=== PATIENT | male | born 1950 | race Caucasian/White ===

== ENCOUNTER → 2016-08-27 | Outpatient (CLI) | payer BC, OTHER ==
[~2016-08-27] MED LIST: ACET325T96 PO; ADVIN25/60 INH; ALFU10TA30 PO; ALUMCHW2 PEG; ALUMCHW6 PO; ASPI-435 PO; ATOR10TA88 PO; BUPR-79 PO; CYAN500T PO; IBUP-1050 PO; LAMO100T16 PO; LEVO100T7 PO; MISC1CAP27 PO; MTR400 PO; MULT-845 PO; NAPR1TAB9 PO; OMEG10007 PO; OMEP20TA14 PO; OXYC-57 PO; POLY1GRA PO; POTA1080 PO; TRAZ50TA35 PO; WARF2TAB PO
[2016-08-27 10:34] LABS: PROSTATE SPECIFIC ANTIGEN 1.75 ng/ml (0.000-4.000); THYROID STIMULATING HORMONE 0.785 uIu/ml (0.300-4.500)
== END | disposition home or self-care (01) ==
LOC: C.LAB 09:17
PROVIDERS: ATTEND Urology
DX: N40.1 Benign prostatic hyperplasia with lower urinary tract symptoms (principal); N52.9 Male erectile dysfunction, unspecified; N20.0 Calculus of kidney; E78.00 Pure hypercholesterolemia, unspecified; E03.9 Hypothyroidism, unspecified

== ENCOUNTER 2016-09-01 05:56 | Inpatient (IN) | payer BC, OTHER ==
[2016-08-27 08:24] VITALS: BMI 21.0
--- NOTE | 2016-08-27 09:02 | PAT Medication Instructions ---
Service Date Aug 27, 2016. Current Home Medication List Acetaminophen Tab (Tylenol), 650 MG PO PRN Alfuzosin Hcl (Uroxatral), 10 MG PO QPM Aluminum Hydroxide-Mag Carb (Gaviscon Extra Strength), 1 TAB PO DAILY PRN for pn Aspirin (Aspirin 81), 81 MG PO QAM Atorvastatin (Lipitor), 10 MG PO HS Bupropion (Wellbutrin Sr), 150 MG PO BID Fish Oil ([place]-3), 1 CAP PO BID Ibuprofen (Advil), 200-400 MG PO PRN Lamotrigine (Lamictal), 50 MG PO QPM Levothyroxine Sodium (Levothyroxine Sodium), 100 MCG PO QAM Multiple Vitamins W/ Minerals (Centrum Silver Adult 50+), 1 TAB PO QAM Naproxen (Aleve), 220 MG PO 5XWEEK Omeprazole Magnesium (Prilosec Otc), 20 MG PO QPM Polyethylene Glycol 3350 (Bulk (Polyethylene Glycol 3350), 0.5 TSP PO QAM Potassium Citrate (Urocit-K), 10 MEQ PO BID Trazodone Hcl (Trazodone), 50-100 MG PO HS Medication Instructions For Your Scheduled Surgery - Hold the following medications as of today 08/27/16: Fish Oil ([place]-3), 1 CAP PO BID - Hold the following medications 7-10 days prior to surgery per surgeon's instructions: Ibuprofen (Advil), 200-400 MG PO PRN Naproxen (Aleve), 220 MG PO 5XWEEK - Hold the following medications the morning of surgery: Potassium Citrate (Urocit-K), 10 MEQ PO BID Multiple Vitamins W/ Minerals (Centrum Silver Adult 50+), 1 TAB PO QAM Aluminum Hydroxide-Mag Carb (Gaviscon Extra Strength), 1 TAB PO DAILY PRN Polyethylene Glycol 3350 (Bulk (Polyethylene Glycol 3350), 0.5 TSP PO QAM - Take the following medications the morning of surgery with a sip of water OTHERWISE NOTHING TO EAT OR DRINK AFTER MIDNIGHT: Bupropion (Wellbutrin Sr), 150 MG PO BID Aspirin (Aspirin 81), 81 MG PO QAM Acetaminophen Tab (Tylenol), 650 MG PO PRN (may take if needed up to 4 hours prior to surgery) Levothyroxine Sodium (Levothyroxine Sodium), 100 MCG PO QAM - Take the following medications as scheduled the night before surgery: Trazodone Hcl (Trazodone), 50-100 MG PO HS Atorvastatin (Lipitor), 10 MG PO HS Bupropion (Wellbutrin Sr), 150 MG PO BID Lamotrigine (Lamictal), 50 MG PO QPM Acetaminophen Tab (Tylenol), 650 MG PO PRN Potassium Citrate (Urocit-K), 10 MEQ PO BID Alfuzosin Hcl (Uroxatral), 10 MG PO QPM Omeprazole Magnesium (Prilosec Otc), 20 MG PO QPM Aluminum Hydroxide-Mag Carb (Gaviscon Extra Strength), 1 TAB PO DAILY PRN If you have any questions please call us at [phone] or [phone] or [phone]
[2016-08-27 09:46] LABS: BASO % 0.5 %; BASO ABS # 0.03 K/uL (0-0.2); COMPLETE YES; HEMATOCRIT 41.8 % (42-52); IG% 0.2 %; LYMPH % 21.4 %; MEAN CELL VOLUME 91.3 fL (80-100); MEAN CORPUSCULAR HEMOGLOBIN 31.4 pg (25-34); MEAN CORPUSCULAR HGB CONC 34.4 g/dl (32-36); MEAN PLATELET VOLUME 8.7 fL (7.4-10.4); MONO % 6.4 %; NEUT % 68.5 %; PLATELET COUNT 217 K/uL (130-400); RED BLOOD COUNT 4.58 M/uL (4.7-6.1); WHITE BLOOD COUNT 6.08 K/uL (4.8-10.8)
[2016-08-27 09:57] LABS: URINE APPEARANCE CLEAR (CLEAR); URINE BILIRUBIN NEG (NEG); URINE COLOR YELLOW; URINE NITRITE NEG (NEG); URINE PH 7.5 (4.5-7.5); URINE SPECIFIC GRAVITY 1.017 (1.000-1.030); UROBILINOGEN NEG (NEG)
[2016-08-27 10:00] LABS: PARTIAL THROMBOPLASTIN RATIO 1.1; PROTHROMBIN TIME (PATIENT) 10.9 SECONDS (9.0-12.0)
[2016-08-27 10:20] LABS: MANUAL MICROSCOPIC REQUIRED? NO; REVIEW REQ? NO
[2016-08-27 10:24] LABS: BUN/CREATININE RATIO 16.8 (10-20); CALCIUM 8.8 mg/dl (8.5-10.1); CREATININE 1.2 mg/dl (0.60-1.40); POTASSIUM 4.2 mmol/L (3.5-5.1)
[2016-08-27 10:26] LABS: ALB/GLOB RATIO 1.1 (0.9-2)
--- NOTE | 2016-08-31 16:52 | HISTORY & PHYSICAL EXAMINATION ---
DATE OF ADMISSION: 09/01/2016 PREOPERATIVE HISTORY AND PHYSICAL CHIEF COMPLAINT: Right hip pain. HISTORY OF PRESENT ILLNESS: This 66-year-old male presents to the clinic for his preoperative history and physical. The patient complains of a 2- to 3-year history of persistent right hip pain. The patient has failed conservative treatment with hip joint injections, chiropractic adjustments, use of nonsteroidal anti-inflammatories and physical therapy. The patient states that the pain is affecting his gait. The patient states that the pain seems worse in the morning and improves slightly throughout the day with movement. The patient denies numbness or tingling in his right lower extremity. He denies any loss of bowel or bladder function. He also denies chest pain, shortness of breath, fever, chills, sweats, nausea, vomiting or diarrhea. PAST SURGICAL HISTORY: Tonsillectomy, adenoidectomy, ventral hernia repair, colonoscopy, sebaceous cyst excision and bilateral eye laser surgery. PAST MEDICAL HISTORY: Anxiety, depression, hyperlipidemia, hypothyroidism, gastroesophageal reflux disease, hyperkalemia, history of renal calculi and benign prostatic hypertrophy. FAMILY HISTORY: Parents - depression, dementia, hyperlipidemia, squamous cell carcinoma and coronary artery disease. ALLERGIES: THE PATIENT HAS A MEDICATION ALLERGY TO CIPRO. CURRENT MEDICATIONS TAKEN: Tylenol 650 mg tablet every 6 hours as needed for pain, alfuzosin 10 mg oral tablet daily, aluminium hydroxide/magnesium trisilicate 160 mg/105 mg as needed, aspirin 81 mg oral tablet daily, atorvastatin 10 mg oral tablet daily, bupropion HCL SR 150 mg twice daily, ibuprofen 200 mg 3 tabs every 6 hours as needed for pain, lamotrigine 50 mg tablet daily, levothyroxine 100 mcg daily, multivitamin unknown dosage daily, naproxen 220 mg 1 tab every 8 hours as needed, omega-3 polyunsaturated fatty acid 1200 mg twice daily, omeprazole 20 mg oral capsule 1 cap daily, polyethylene glycol 3350 reconstituted in water 17 grams p.o. daily, potassium citrate 180 mg per 10 mEq 2 times daily and trazodone 50-100 mg daily as needed. SOCIAL HISTORY: The patient denies a history of smoking or illicit drug use and states that he rarely consumes alcohol. PHYSICAL EXAMINATION: SKIN: The patient's skin is normal in appearance. No open skin lesions or discharge. EYES: Pupils are equal and reactive to light and accommodation. Extraocular movements are intact. EARS: Canals are clear of cerumen. Tympanic membranes are intact bilaterally with no bulging or effusion. NOSE: Turbinates pink and boggy in appearance. No appreciable rhinorrhea. THROAT: Posterior oropharynx is clear with absence of edema, erythema or exudate. CARDIOVASCULAR: The patient has a regular rate and rhythm with a very faint grade 1/6 holosystolic murmur heard best over the apex. LUNGS: Auscultation of the lung lugo reveals clear breath sounds throughout with no wheezing, rales or rhonchi. EXTREMITIES: Right hip - the patient has mild crepitation with active and passive range of motion of the right hip. He has a positive Zoran test and positive internal rotation test. He has no pain with external rotation and no pain with adduction, actively or passively against resistance and he has a negative straight leg raise test in the right lower extremity. There is no edema, erythema, ecchymosis, warmth or palpable bony deformity. The patient does have tenderness to palpation over the anterior and lateral aspect of the right hip. Otherwise, he is neurovascularly intact in right lower extremity. His peripheral pulses are palpable. His capillary refill is brisk. All other extremities are normal in appearance with appropriate range of motion and strength. NEUROLOGIC: Cranial nerves II-XII are intact. No motor or sensory deficit. PSYCHOLOGICAL AND GENERAL: The patient appears slightly anxious at today's visit. Otherwise, he is alert and oriented x3 with proper grooming and hygiene. DIAGNOSIS: Right hip degenerative joint disease. PROCEDURE: Right total hip arthroplasty. RADIOGRAPHIC IMAGING: Images of the right hip/pelvis show end-stage disease with marked osteoarthritis and joint space narrowing in the right hip joint with femoral impingement and a large Cam lesion. PLAN: The patient is scheduled to undergo the procedure with Dr. Austin Ross at [facility] on 09/01/2016. Risks and complications of the surgery such as infection, bleeding, pain, scarring, nerve and blood vessel damage, weakness, wound problems, stiffness, incomplete relief of symptoms, heart attack, stroke, , hardware failure, loosening membreno, fracture, dislocation, leg length inequality, blood clots and embolism were explained to the patient and he understands and agrees. Written consent to perform the procedure was obtained. We also obtained preoperative medical clearance from the patient's PCP, Dr. Adams along with cardiac clearance that he received from Dr. Mcfarland. We will also obtain a preoperative CBC with diff, complete metabolic panel, PT, INR, PTT, blood type and screen, urinalysis, urine culture and sensitivity and an EKG. The patient is scheduled for preanesthesia clearance and testing at the hospital this Tuesday and will obtain the necessary testing at that time. He is scheduled to see his PCP on the 25 of August. The patient was given an order for a walker that he will obtain at [facility] and bring with him on the day of surgery. He states he is unsure whether he will do home health for 2 weeks or will come to our clinic for postoperative physical therapy after discharge from the hospital. The patient states that he will discuss it with case management with the hospital before discharge. The patient was given paperwork for a handicap placard. He was also given instruction prophylaxis of infection with dental procedures that he will have to take medication prior to procedures after having the arthroplasty performed. The patient was advised that he will be provided with prescriptions for Coumadin to take for 6 weeks for DVT prophylaxis. He will have to do biweekly INR checks while he is on Coumadin. He will also use MARCOS stockings for DVT prophylaxis. The patient was advised that he will be provided with a prescription for pain medication upon discharge from the hospital along with prescriptions for the INR checks and for physical therapy/occupational therapy that he will do 2-3 times weekly for 6-8 weeks postoperatively. The patient verbalized understanding of all information provided at today's visit and thanked us for the care he has received and states that he has questions or concerns prior to the procedure, he will contact the clinic accordingly. JOSE A
[2016-09-01] VITALS (9 sets, daily range): BP systolic 101–129; BP diastolic 43–73; PULSE 53–74; TEMP 36.3–37.2; O2SAT 93–98; Ht 172.7 cm; Wt 63.9 kg
[~2016-09-01] VITALS: Ht 172.7 cm; Wt 63.9 kg
[~2016-09-01 05:56] MED LIST changes: -ADVIN25/60 INH; -ALUMCHW2 PEG; -CYAN500T PO; -MISC1CAP27 PO; -MTR400 PO; -OXYC-57 PO; -WARF2TAB PO
[2016-09-01] MEDS ORDERED: LACTATED RINGER'S 1000ML 1,000 ML IV SCH (06:00)
[2016-09-01] MEDS ORDERED: TRANEXAMIC ACID INJ 1,000 MG in SODIUM CHLORIDE 0.9% 100ML 100 ML IV SCH (06:00)
[2016-09-01] MEDS ORDERED: LACTATED RINGER'S 1000ML IV SCH (06:00)
[2016-09-01] MEDS ORDERED: CEFAZOLIN 2000 MG/60 ML D5W 60 ML IV SCH (06:00)
--- NOTE | 2016-09-01 06:21 | History & Physical Bridge Note ---
H&P Re-Evaluation Bridge Note: I have examined the patient, reviewed the History & Physical and in the interval since the performance of the History & Physical I have noted the following changes of clinical significance: No changes noted
[2016-09-01] MEDS ORDERED: BUPIVACAINE 0.5 % 5 MG/1 ML PF 10ML VIAL ONE (06:28)
[2016-09-01] MEDS ORDERED: PROPOFOL IV EMULSION 10 MG/ML 20 ML VIAL IV ONE (07:21)
[2016-09-01] MEDS ORDERED: LIDOCAINE HCL 2% 2 ML VIAL (20MG/ML) ONE (07:21)
[2016-09-01] MEDS ORDERED: FENTANYL CITRATE INJ 50 MCG/1 ML 2 ML VIAL ONE (07:22)
[2016-09-01] MEDS ORDERED: MIDAZOLAM HCL 1 MG/ML 2ML VIAL ONE ×2 (07:22→08:52)
[2016-09-01] MEDS ORDERED: POVIDONE-IODINE OP SOLN 30 ML BTL ONE (08:29)
[2016-09-01] MEDS ORDERED: LACTATED RINGER'S 1000ML 1,000 ML IV PRN (08:41)
[2016-09-01] MEDS ORDERED: ONDANSETRON INJ 2 MG/ML 2 ML VIAL IV PRN ×2 (08:45→10:15)
[2016-09-01] MEDS ORDERED: FENTANYL CITRATE INJ 50 MCG/1 ML 2 ML VIAL IV PRN (08:45)
[2016-09-01] MEDS ORDERED: EpHEDrine SULFATE 50MG/5ML SYR ONE (09:06)
[2016-09-01] MEDS ORDERED: ONDANSETRON INJ 2 MG/ML 2 ML VIAL ONE (09:06)
[2016-09-01] MEDS: ROPIVACAINE 5MG/ML 30 ML 150 MG, BUPIVACAINE/EPINEPHR 0.5% MPF 30 ML, KETOROLAC TROMETH... INFIL SCH ×14 (09:30→09:32)
--- NOTE | 2016-09-01 09:53 | [facility] Post Operative Brief Note ---
Immediate Operative Summary Operative Date Sep 01, 2016. Pre-Operative Diagnosis Right Hip Degenerative Joint Disease Post-Operative Diagnosis Right Hip Degenerative Joint Disease Procedure(s) Performed Right Total Hip Arthroplasty--Uncemented Surgeon Dr. Ross Correctional Program Officer Surgeon(s) Denis Garcia PA-C Estimated Blood Loss 100 ml Findings severe djd/coxa magna Fluids (cc crystalloids) 1200cc Specimens A: Right Femoral Head Drains none Anesthesia spinal Complication(s) None Disposition Recovery Room / PACU
[2016-09-01] MEDS ORDERED: MoRPHine SULFATE 2 MG/ML CARP IV PRN (10:15)
[2016-09-01] MEDS ORDERED: DiphenhydrAMINE HCL 50 MG/ML VIAL IV PRN (10:15)
[2016-09-01] MEDS ORDERED: ALUMINUM/MAGNESIUM/SIMETH (MAALOX MAX) 30 ML UDC PO PRN (10:15)
[2016-09-01] MEDS ORDERED: TAMSULOSIN HCL 0.4 MG CAP PO PRN (10:15)
[2016-09-01] MEDS ORDERED: MAGNESIUM HYDROXIDE SUSP 30 ML UDC PO PRN (10:15)
[2016-09-01] MEDS ORDERED: BISACODYL 10 MG SUPP PR PRN (10:15)
[2016-09-01] MEDS ORDERED: ACETAMINOPHEN 325 MG TAB PO PRN (10:15)
[2016-09-01] MEDS ORDERED: METOCLOPRAMIDE HCL INJ 5 MG/ML 2 ML VIAL IV PRN (10:15)
--- NOTE | 2016-09-01 10:17 | OPERATIVE REPORT ---
DATE OF OPERATION: 09/01/2016 SURGEON: Dr. Ross. NUCLEAR MEDICINE PHYSICIAN: Radha. SECOND NUCLEAR MEDICINE PHYSICIAN: Conner Azul. PREOPERATIVE DIAGNOSIS: Osteoarthritis right hip with coxa magna. POSTOPERATIVE DIAGNOSIS: Same. OPERATION PERFORMED: Noncemented right total hip replacement. PERIOPERATIVE SITUATION: Medically cleared male with intractable hip pain, has failed conservative management. He has had an extensive cardiac workup cardiac workup and is cleared for surgery. Options were discussed and he wanted to proceed with surgery. SUMMARY OF IMPLANTS: Size 56 acetabular shell sector cup hole eliminator, 6.5 x 30 screw liner, 36 x 56 neutral liner, size 4 standard offset stem, and 36 minus 2 head. ESTIMATED BLOOD LOSS: 100 mL. CRYSTALLOID: 1200 mL. PROCEDURE: The patient appropriately identified, site verified, consent verified, 2 grams of Ancef confirmed as being given. The right lower extremity was prepped and draped in usual routine fashion with the patient in left lateral decubitus position. A posterior approach to the hip was made. Sharp dissection carried to skin and blunt dissection down to the fascia. This was then incised under direct vision. Retractors were then placed. Short external rotators were identified and released. The capsule was identified and T'd. The hip was then dislocated, the femoral neck and head resected. The remaining labrum was then resected. Serial reaming carried up to a 56 and a 56 cup impacted into appropriate anteversion and inclination. It had excellent fixation alone but an additional screw 6.5 x 30 screw was utilized and excellent purchase was obtained. Trial liner was seated. The leg was then flexed, internally rotated, the proximal femur prepared with box worker, lateralizing rasp, serial broaching up to a size 4 and trial reductions carried out. With a +1.5, it appeared the legs were slightly long, so we wanted to go back a little bit was also a little bit tight, so we went back to a minus 2 and that made the leg lengths slightly short but much less tightness and significant stability was present, so it was elected to go with that. The hip was then dislocated, the remaining trial elements were removed and irrigated with Betadine, irrigated with Pulsavac, the hole eliminator seated, the permanent liner seated, the permanent head and neck seated and then the hip reduced. It had excellent stability in all planes. It was irrigated one final time and then closed with heavy Vicryl for the capsule, heavy Vicryl for the fascial albino and the gluteus tod fascia, 2-0 Vicryl for the subcutaneous tissue and stainless steel clips for skin. Appropriate dressing applied. The patient was then transferred to recovery room in satisfactory condition having tolerated the procedure well. Deep venous thrombosis prophylaxis per protocol. I attest to the content of the Intraoperative Record and any orders documented therein. Any exceptio ns are noted below.
--- NOTE | 2016-09-01 10:50 | DIAGNOSTIC IMAGING REPORT ---
PELVIS 1 OR 2 VIEW ROUTINE CLINICAL HISTORY: Degenerative arthritis. Postoperative examination. COMPARISON STUDY: 09/24/2014 FINDINGS: There are postsurgical changes of a total right hip arthroplasty. The femoral and acetabular components appear well seated. There are overlying skin april. There is air within the soft tissues consistent with the history of recent surgery. IMPRESSION: Postsurgical changes of a total right hip arthroplasty. Electronically signed by: Fadi Hong M.D. 09/01/2016 10:49 AM Dictated Date/Time: 09/01/2016 10:48 AM
--- NOTE | 2016-09-01 10:59 | OPERATIVE REPORT ---
DATE OF OPERATION: 09/01/2016 PREOPERATIVE DIAGNOSIS: Right hip endstage degenerative joint disease. POSTOPERATIVE DIAGNOSIS: Right hip same. PROCEDURE: Right hip total hip arthroplasty using DePuy implants. SURGEON: Dr. Ross. ACADEMIC COACH: Denis Garcia PA-C. HISTORY OF PRESENT ILLNESS: This 66-year-old white male presented to the office with complaints of intractable right hip pain. He had tried conservative care measures including activity modification, oral pain medications, and assistive devices without success. He elected to proceed with surgical intervention after being educated about potential risks and outcomes. Preoperative x-rays were obtained. OPERATION: The patient was administered spinal anesthetic and then taken to the operating room where he was given sedation. He was prepped and draped in the usual sterile fashion. Please see Dr. Ross's operative report for specifics of the procedure. I was present for the entire case from initial patient positioning through final wound closure. Assistance was provided in tissue retraction, hemostasis, trial implant placement, final implant placement, and final wound closure. The patient was taken to the recovery room in satisfactory condition. I attest to the content of the Intraoperative Record and any orders documented therein. Any exceptio ns are noted below.
--- NOTE | 2016-09-01 11:08 | PROGRESS NOTE ---
DATE: 09/01/2016 SUBJECTIVE: Postop check. The patient is seen in recovery room. At this point in time, he has no nausea, vomiting, chest pain, shortness of breath, fever, chills, headache. He notes that his legs are still numb from his spinal. OBJECTIVE: Wound dressing clean, dry and intact. Neurovascular check limited by the spinal. X-RAYS: AP pelvis and hips reveals well fixed, well aligned hip replacement on the right. ASSESSMENT AND PLAN: Doing well. Continue with care pathway. Mobilize to tolerance when strength returns.
--- NOTE | 2016-09-01 11:18 | Medical Student: [facility] ---
Operative Report Operative Date Sep 01, 2016. Pre-Operative Diagnosis Osteoarthritis of right hip Post-Operative Diagnosis Osteoarthritis of right hip Procedure(s) Performed Total right hip arthroplasty (uncemented) Surgeon Dr. Cody MD Sink Maker Surgeon(s) Denis Garcia PA-C Estimated Blood Loss 100 mL Findings Confirmation of osteoarthritis of right hip Fluids (cc crystalloids) 1200 cc Specimens Right femoral head Anesthesia Spinal Complication(s) None Disposition Recovery Room / PACU
[2016-09-01 11:36] LABS: CHOLESTEROL/HDL RATIO 1.7
--- NOTE | 2016-09-01 11:47 | Anesthesiology Progress Note ---
Anesthesia Post Op Note Date & Time Sep 01, 2016 at 11:47 Vital Signs Pain Intensity: 0 Vital Signs Past 12 Hours Date Time Temp Pulse Resp B/P Pulse Ox O2 Delivery O2 Flow Rate FiO2 09/01/16 11:20 51 09/01/16 11:20 52 16 100 09/01/16 11:19 117/57 09/01/16 11:15 51 14 09/01/16 11:15 50 14 100 09/01/16 11:14 117/56 09/01/16 11:10 50 12 100 09/01/16 11:10 50 12 09/01/16 11:09 116/56 09/01/16 11:05 51 11 09/01/16 11:05 51 11 100 09/01/16 11:04 118/58 09/01/16 11:00 51 13 09/01/16 11:00 51 13 100 09/01/16 10:59 51 16 09/01/16 10:59 51 16 120/58 100 09/01/16 10:54 51 11 09/01/16 10:54 50 11 119/56 100 09/01/16 10:49 51 13 122/54 100 09/01/16 10:49 51 13 09/01/16 10:44 49 16 09/01/16 10:44 49 16 113/53 100 09/01/16 10:39 48 10 09/01/16 10:39 47 10 122/57 100 09/01/16 10:38 36.9 09/01/16 10:35 58 16 100 09/01/16 10:35 54 16 09/01/16 10:34 120/47 09/01/16 10:30 51 15 100 09/01/16 10:30 51 15 09/01/16 10:29 95/66 09/01/16 10:25 51 14 99 09/01/16 10:25 51 14 09/01/16 10:24 102/45 09/01/16 10:20 53 15 09/01/16 10:20 53 15 100 09/01/16 10:19 113/48 09/01/16 10:15 51 10 09/01/16 10:15 51 10 100 09/01/16 10:14 108/51 09/01/16 10:10 53 10 100 09/01/16 10:10 52 10 09/01/16 10:08 106/47 09/01/16 10:00 36.6 52 16 106/47 98 Nasal Cannula 3 09/01/16 07:05 36.7 55 18 120/73 97 Room Air Notes Mental Status: alert / awake / arousable, participated in evaluation Pt Amnestic to Procedure: Yes Nausea / Vomiting: adequately controlled Pain: adequately controlled Airway Patency, RR, SpO2: stable & adequate BP & HR: stable & adequate Hydration State: stable & adequate Neuraxial Anesthesia: was administered, sensory block is resolving Anesthetic Complications: no major complications apparent
[2016-09-01] MEDS ORDERED: D5W AND 1/2NSS + 20MEQ KCL 1,000 ML IV SCH (12:30)
[2016-09-01] MEDS ORDERED: MoRPHine SULFATE 4 MG/ML 1 ML CARP\\VIAL IV PRN (12:45)
[2016-09-01] MEDS: KETOROLAC TROMETHAMINE 15 MG/ML VIAL IV. SCH ×3 (12:47→23:41)
[2016-09-01] MEDS: ACETAMINOPHEN IV 1,000 MG in EMPTY BAG 0 ML IV SCH ×2 (13:57→21:53)
[2016-09-01] MEDS: OXYCODONE HCL IR 5 MG TAB (IMMEDIATE RELEASE) PO PRN (15:10)
[2016-09-01] MEDS ORDERED: TRANEXAMIC ACID INJ 1,000 MG in SODIUM CHLORIDE 0.9% 100ML 100 ML IV ONE (16:00)
[2016-09-01] MEDS ORDERED: WARFARIN SOD 5 MG TAB PO ONE (17:00)
[2016-09-01] MEDS: CEFAZOLIN IV 2,000 MG in DEXTROSE 5% 50ML 50 ML IV SCH (17:15)
[2016-09-01] MEDS: FERROUS GLUCONATE 324 MG TAB PO SCH (18:04)
[2016-09-01] MEDS ORDERED: ALFUZosin TAB 10 MG TAB PO SCH (21:00)
[2016-09-01] MEDS ORDERED: TRAZODONE HCL 50 MG TAB PO SCH (21:00)
[2016-09-01] MEDS ORDERED: ATORVASTATIN 10 MG TAB PO SCH (21:00)
[2016-09-01] MEDS: POTASSIUM CITRATE 10 MEQ TAB PO SCH (21:51)
[2016-09-01] MEDS: DOCUSATE SODIUM 100 MG CAP PO SCH (21:51)
[2016-09-01] MEDS: BuPROPion SR 150 MG TABCR PO SCH (21:51)
[2016-09-02] MEDS: CEFAZOLIN IV 2,000 MG in DEXTROSE 5% 50ML 50 ML IV SCH (01:16)
[2016-09-02 04:52] VITALS: BP 91/53; PULSE 54; TEMP 36.7; O2SAT 95
[2016-09-02] MEDS: ACETAMINOPHEN IV 1,000 MG in EMPTY BAG 0 ML IV SCH (05:31)
[2016-09-02] MEDS: KETOROLAC TROMETHAMINE 15 MG/ML VIAL IV. SCH (05:32)
[2016-09-02] MEDS ORDERED: LEVOTHYROXINE 100 MCG TAB PO SCH (06:00)
[2016-09-02 06:25] LABS: INR 1.1 (0.9-1.1); PROTHROMBIN TIME (PATIENT) 11.4 SECONDS (9.0-12.0)
[2016-09-02 06:52] LABS: BASO % 0.1 %; BASO ABS # 0.01 K/uL (0-0.2); COMPLETE YES; EOS % 0.8 %; HEMATOCRIT 36.5 % (42-52); IG% 0.2 %; LYMPH % 7.1 %; LYMPH ABS # 0.89 K/uL (1.2-3.4); MEAN CELL VOLUME 92.9 fL (80-100); MEAN CORPUSCULAR HGB CONC 33.4 g/dl (32-36); MONO % 7.7 %; NEUT % 84.1 %; PLATELET COUNT 178 K/uL (130-400); RED BLOOD COUNT 3.93 M/uL (4.7-6.1); WHITE BLOOD COUNT 12.46 K/uL (4.8-10.8)
[2016-09-02 06:54] LABS: BUN/CREATININE RATIO 13.2 (10-20); CALCIUM 7.7 mg/dl (8.5-10.1); CREATININE 1.3 mg/dl (0.60-1.40)
[2016-09-02 07:07] VITALS: BP 110/56; PULSE 66; TEMP 36.8; O2SAT 93
[2016-09-02] MEDS ORDERED: DEXAMETHASONE INJ 10 MG in SYRINGE 0 ML IV ONE (07:30)
--- NOTE | 2016-09-02 07:53 | PROGRESS NOTE ---
DATE: 09/02/2016 Postop day #1 status post right total hip replacement. At this point in time the patient is doing well, has no chest pain, shortness of breath, fever, chills, nausea, vomiting or headache. Vital signs are stable. He is afebrile. Hip located on exam. Wound dressing clean, dry and intact. Hematocrit stable at 36.5. INR is 1.1. Chemistry is within normal limits. Lipid profile is excellent. ASSESSMENT: Status post right total hip replacement, postop day #1; is doing well. Will discharge today after PT, OT and social service consult. Follow up in 2 weeks for staple removal. Discharge on 4 mg Coumadin daily. Check INR on Tuesday.
--- NOTE | 2016-09-02 08:00 | DISCHARGE SUMMARY ---
DATE OF DISCHARGE: 09/02/2016. CHIEF COMPLAINT: Right hip pain. HISTORY OF PRESENT ILLNESS: A 66-year-old male admitted for elective total hip replacement on the right lower extremity. At this point in time he has no issues. His pain is well managed, he is not nauseated. He is eating well. PAST SURGICAL HISTORY: Remarkable for tonsillectomy, adenoidectomy, ventral hernia repair, colonoscopy, sebaceous cyst excision and eye surgery. PAST MEDICAL HISTORY: Remarkable for anxiety, depression, hyperlipidemia, hypothyroidism, GERD, hyperkalemia, history of renal calculi and benign prostatic hypertrophy. FAMILY HISTORY: Remarkable for depression, dementia, hyperlipidemia, squamous cell carcinoma and coronary artery disease. ALLERGIES: CIPRO. PREADMISSION MEDICATIONS: Tylenol, alfuzosin, aluminum hydroxide, magnesium trisilicate, aspirin, atorvastatin, bupropion hydrochloride, ibuprofen, lamotrigine, levothyroxine, multivitamins, omega 3, polyunsaturated acid, omeprazole, polyethylene glycol, potassium citrate and trazodone. He will discontinue any anti-inflammatory and add p.r.n. pain medication, Percocet and add Coumadin 4 mg daily to keep INR 1.8 to 2.2, adjust as needed. SOCIAL HISTORY: Reveals that he denies history of smoking or drug use, social alcohol only. PHYSICAL EXAMINATION: Reveals hip to be located. Neurovascular check femoral sciatic nerve is excellent. Rotation and flexion of the hip is without pain. X-rays look excellent. Hematocrit stable at 36.5. INR is 1.1. ASSESSMENT: Doing well status post right hip replacement. We will discharge today after PT/OT and social service consult. Discharge on 4 mg of Coumadin daily starting tomorrow. He will get his postop day #1 dose of Coumadin today prior to discharge and then to start his own Coumadin on Tuesday with dinnertime. This was advised to him. Check INR on Tuesday. Adjust as needed at that point in time. Follow up in 2 weeks for staple removal.
[2016-09-02] MEDS ORDERED: OXYC-57 PO (08:31)
[2016-09-02] MEDS ORDERED: WARF2TAB PO (08:31)
--- NOTE | 2016-09-02 08:34 | Discharge Instructions ---
Discharge Instructions Admission Reason for Admission: Right Hip Degenerative Joint Disease Discharge Discharge Diagnosis / Problem: Right hip s/p total hip replacement Discharge Goals Goal(s): Decrease discomfort, Improve function, Increase independence Activity Recommendations Activity Limitations: as noted below Lifting Limitations: gradually increase as tolerated Exercise/Sports Limitations: until after follow-up appointment Shower/Bathe: keep incision dry Driving or Machine Use: No driving until cleared by Dr. Ross Weightbearing Status: Right weightbearing (as tolerated) . Instructions / Follow-Up Instructions / Follow-Up New Medicine: * You will likely be taking one or more of these medicines: 1. Percocet - Take, as directed, when you need it, every four to six hours to control your pain. 2. Coumadin - Thins your blood to lessen the chance of forming a blood clot. The dose of this is different for each person and is based on your blood tests that are done twice a week. * The most common side effects of pain medicine and iron are nausea and constipation. If nausea or constipation is too much of a problem or if you have any questions about your new medicines or doses, call [facility] at . We will try to help you manage these issues. VERY IMPORTANT TO READ AND REVIEW" Blood Clots and Blood Thinning Medicine: * You are given Coumadin during the immediate post-operative period to lessen the risk of blood clots forming in your legs and/or lungs. Coumadin is usually given for six weeks after surgery. * The prescription is for 2 mg tablets. At discharge, you should understand your dose and take it all at the same time every day, preferably after dinner. * You need to get your blood checked 1 - 2 times per week for six weeks, or as directed. * If your dose needs to change, we will call you. Do not take your medication on the day of the blood test until we call you. * If you don't hear from us after your blood draws, keep taking the same dose. Pain: * The immediate post-operative period after hip replacement surgery is often quite painful. * You are given a prescription for pain medicine. You should take it, as directed, when you need it, especially before physical therapy and before going to bed. Pain that interferes with sleep is very common and can last several months. * You will likely need pain medicine for the first two to four weeks. It will not stop all of the pain. The pain will lessen and as you feel better, you may change to milder pain medicine such as Tylenol. * The most common side effects of pain medicine are nausea and constipation, so don't take more than you need. Physical Therapy: * Follow the "Hip Precautions Instructions." * In some cases, the manager social work at the hospital will arrange to have a therapist come to your house for the first couple of weeks to help you learn these skills. * You need to practice on your own or with the help of a family member as needed. * When you learn these skills, most of the therapy can be done on your own. Home Exercise: * You were shown a series of exercises in the hospital. Do these exercises three to four times each day including the exercises you were shown in physical therapy. Walking: * Get up and walk several times each day. For the first four weeks, try not to stand or walk for more than one hour at a time. If you do stand or walk for more than one hour, you will not hurt anything, but your leg will likely swell. * As you feel comfortable, you may change from the walker or crutches to a cane and then to independent walking. SELF CARE INSTRUCTIONS AFTER TOTAL HIP REPLACEMENT Until the incision and soft tissues around your hip have healed, there is a possibility that the hip prosthesis could dislocate. A. Observe the following precautions to prevent dislocation: 1. Don't bend your hip greater than 90 degrees. 2. Avoid crossing your legs or ankles while standing or lying. 3. Sit with your feet placed 6 inches apart. 4. When sitting, keep your knees below your hips. Sit on a firm surface, avoid deep, soft chairs and couches. Use an elevated toilet seat in the bathroom. 5. Don't bend over at the waist. Use a long handled shoehorn and a sock aid to help you put on your shoes and socks. A rn liaison can help you pick up and delivery driver objects that are too high or too low to reach. 6. Keep car riding to a minimum for at least one month after surgery. B. Your balance may be shaky for a while. Use crutches or a walker until directed by your doctor. C. Use hand rails when walking on stairs. D. Wear low heeled shoes with non-slip soles. E. Be sure that your floors are free of things that could trip you - throw rugs , electrical cords, small objects. Avoid wet and waxed floors, especially with crutches and canes. F. Try to walk several times a day with rest periods between. G. Continue with all the exercises taught to you in the hospital. Again, make walking a part of your daily routine. VERY IMPORTANT TO READ AND REVIEW A. Take Coumadin, or Lovenox (blood thinning medications) as directed by your doctor. If you are on Coumadin, have a pro-time (blood test) drawn according to your doctor's instructions. This will tell the doctor how well the Coumadin is thinning your blood. B. There are a few signs you need to watch for after you are home. If you notice any of the followin. Increased severe hip pain. Some pain is expected especially when you exercise. 2. Increased swelling in your leg or knee; pain or swelling of the calf muscle in either lower leg. 3. Any fluid drainage from the incision. 4. Shortness of breath or chest pain. TEDs/Elastic Stockings: * The white elastic stockings help limit swelling and prevent blood clots from forming in your legs. The more you wear them, the more they work. * Wear them for six weeks. Prevention of Infection: * Take antibiotics one hour before any dental cleaning, dental work, urological procedure, gastrointestinal procedure or any invasive surgery in order to prevent your new joint from getting infected. * You may get the antibiotics from the doctor performing the procedure or we will call in a prescription to the pharmacy of your choice. Call the office for a prescription at least 2 days prior to your appointment. Things to Watch For: * Drainage from the incision site that occurs more than one week after your surgery. * Severely increased leg pain or swelling. * Increased redness at the incision site. * Fever above 101 degrees Fahrenheit. * Unusual chest pain or shortness of breath. * Unusual pain or burning with urination. Current Hospital Diet Patient's current hospital diet: AHA Diet (Heart Healthy) Discharge Diet Recommended Diet: AHA Diet (Heart Healthy) Procedures Procedures Performed: Right Total Hip Arthroplasty--Uncemented Pending Studies Studies pending at discharge: no Laboratory Results Lipid Panel Test 09/01/16 10:30 Range/Units Triglycerides Level 59 0-150 mg/dl Cholesterol Level 138 0-200 mg/dl HDL Cholesterol 79 mg/dl Cholesterol/HDL Ratio 1.7 LDL Cholesterol, Calculated 47 mg/dl Medical Emergencies . Who to Call and When: Medical Emergencies: If at any time you feel your situation is an emergency, please call 911 immediately. . Non-Emergent Contact Non-Emergency issues call your: Primary Care Provider, Surgeon Call Non-Emergent contact if: temperature is above 100.5, wound has increased redness, wound has increased pain, you have any medication questions . "Provider Documentation" section prepared by Denis Garcia PA-C. VTE Core Measure Inpt VTE Proph given/why not?: Warfarin (Coumadin), Margi Andrews, SCD's PA Drug Monitoring Program Search Results: no issues identified
--- NOTE | 2016-09-02 08:50 | Orthopedic Progress Note ---
Orthopedic Progress Note Date of Service Sep 02, 2016. Subjective Post OP Day: 1 Reports: feeling well, Denies: SOB, calf pain, chest pain, light headedness, nausea / vomiting Additional Notes: states he is tired from being checked on by nursing throughout the night. Objective calves soft nontender, N/V intact, hip located, capillary refill less than 2 sec., dressing C/D/I, incision C/D/I, A&O x3, toes mobile wound looks very good, minimal drainage. Date Time Temp Pulse Resp B/P Pulse Ox O2 Delivery O2 Flow Rate FiO2 09/02/16 08:16 Room Air 09/02/16 07:07 36.8 66 19 110/56 93 Room Air 09/02/16 04:52 36.7 54 18 91/53 95 Room Air 09/01/16 23:46 36.8 61 18 111/58 94 Room Air 09/01/16 23:45 Room Air 09/01/16 19:52 37.2 64 18 106/43 95 Room Air 09/01/16 15:32 36.7 57 17 108/47 95 Room Air 09/01/16 15:20 Room Air 09/01/16 14:24 36.4 59 18 93 Room Air 09/01/16 14:17 101/58 09/01/16 13:30 36.6 74 19 107/47 94 Room Air 09/01/16 12:30 36.4 53 20 115/57 98 Nasal Cannula 2.0 09/01/16 11:59 36.3 53 19 129/66 98 Nasal Cannula 2.0 09/01/16 11:30 Nasal Cannula 2.0 09/01/16 11:30 Nasal Cannula 2.0 09/01/16 11:20 51 09/01/16 11:20 52 16 100 09/01/16 11:19 117/57 09/01/16 11:15 51 14 09/01/16 11:15 50 14 100 09/01/16 11:14 117/56 09/01/16 11:10 50 12 100 09/01/16 11:10 50 12 09/01/16 11:09 116/56 09/01/16 11:05 51 11 09/01/16 11:05 51 11 100 09/01/16 11:04 118/58 09/01/16 11:00 51 13 09/01/16 11:00 51 13 100 09/01/16 10:59 51 16 09/01/16 10:59 51 16 120/58 100 09/01/16 10:54 51 11 09/01/16 10:54 50 11 119/56 100 09/01/16 10:49 51 13 122/54 100 09/01/16 10:49 51 13 09/01/16 10:44 49 16 09/01/16 10:44 49 16 113/53 100 09/01/16 10:39 48 10 09/01/16 10:39 47 10 122/57 100 09/01/16 10:38 36.9 09/01/16 10:35 58 16 100 09/01/16 10:35 54 16 09/01/16 10:34 120/47 09/01/16 10:30 51 15 100 09/01/16 10:30 51 15 09/01/16 10:29 95/66 09/01/16 10:25 51 14 99 09/01/16 10:25 51 14 09/01/16 10:24 102/45 09/01/16 10:20 53 15 09/01/16 10:20 53 15 100 09/01/16 10:19 113/48 09/01/16 10:15 51 10 09/01/16 10:15 51 10 100 09/01/16 10:14 108/51 09/01/16 10:10 53 10 100 09/01/16 10:10 52 10 09/01/16 10:08 106/47 09/01/16 10:00 36.6 52 16 106/47 98 Nasal Cannula 3 Laboratory Results 24 Hours: Test 09/02/16 06:05 White Blood Count 12.46 K/uL Red Blood Count 3.93 M/uL Hemoglobin 12.2 g/dL Hematocrit 36.5 % Mean Corpuscular Volume 92.9 fL Mean Corpuscular Hemoglobin 31.0 pg Mean Corpuscular Hemoglobin Concent 33.4 g/dl Platelet Count 178 K/uL Mean Platelet Volume 9.0 fL Neutrophils (%) (Auto) 84.1 % Lymphocytes (%) (Auto) 7.1 % Monocytes (%) (Auto) 7.7 % Eosinophils (%) (Auto) 0.8 % Basophils (%) (Auto) 0.1 % Neutrophils # (Auto) 10.48 K/uL Lymphocytes # (Auto) 0.89 K/uL Monocytes # (Auto) 0.96 K/uL Eosinophils # (Auto) 0.10 K/uL Basophils # (Auto) 0.01 K/uL Prothromb Time International Ratio 1.1 Prothrombin Time 11.4 SECONDS Assessment & Plan Assessment: Right hip post op day 1 total hip arthroplasty Plan: PT/OT today dressing changed by me today-minimal drainage, wound looks very good continue total hip precautions coumadin per nomogram today anticipate D/C to home later today if he does well with PT. Discharge Planning Discharge Planning: home with home health Pain Management: Percocet DVT Prophylaxis: TEDs, SCDs, Coumadin Therapy: Physical Therapy
[2016-09-02] MEDS ORDERED: PANTOprazole SOD 40 MG TAB PO SCH (09:00)
[2016-09-02] MEDS ORDERED: POLYETHYLENE (MIRALAX) 17 GM PACK PO SCH (09:00)
[2016-09-02] MEDS ORDERED: ASPIRIN 81 MG ECTAB PO SCH (09:00)
[2016-09-02] MEDS ORDERED: MULTIVITAMIN TAB PO SCH (09:00)
--- NOTE | 2016-09-02 09:00 | Medical Student: [facility] ---
Med Student Progress Note Date of Service Sep 02, 2016. Subjective Pt evaluation today including: conversation w/ patient, chart review, lab review Noé Walsh is a 66 year old male who presents for follow-up post right total hip arthroplasty on 09/01/16. He did not have a good night sleep as nursing checked in on him often but is otherwise doing well. 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 He is eating and drinking fluids appropriately. He complains of moderate pain related to surgical site. Review of Systems Constitutional: No chills, No fever Respiratory: No shortness of breath Cardiac: No chest pain Abdomen: No nausea, No pain, No vomiting Musculoskeletal: No calf pain Objective Vital Signs Date Time Temp Pulse Resp B/P Pulse Ox O2 Delivery O2 Flow Rate FiO2 09/02/16 08:16 Room Air 09/02/16 07:07 36.8 66 19 110/56 93 Room Air 09/02/16 04:52 36.7 54 18 91/53 95 Room Air 09/01/16 23:46 36.8 61 18 111/58 94 Room Air 09/01/16 23:45 Room Air 09/01/16 19:52 37.2 64 18 106/43 95 Room Air 09/01/16 15:32 36.7 57 17 108/47 95 Room Air 09/01/16 15:20 Room Air 09/01/16 14:24 36.4 59 18 93 Room Air 09/01/16 14:17 101/58 09/01/16 13:30 36.6 74 19 107/47 94 Room Air 09/01/16 12:30 36.4 53 20 115/57 98 Nasal Cannula 2.0 09/01/16 11:59 36.3 53 19 129/66 98 Nasal Cannula 2.0 09/01/16 11:30 Nasal Cannula 2.0 09/01/16 11:30 Nasal Cannula 2.0 09/01/16 11:20 51 09/01/16 11:20 52 16 100 09/01/16 11:19 117/57 09/01/16 11:15 51 14 09/01/16 11:15 50 14 100 09/01/16 11:14 117/56 09/01/16 11:10 50 12 100 09/01/16 11:10 50 12 09/01/16 11:09 116/56 09/01/16 11:05 51 11 09/01/16 11:05 51 11 100 09/01/16 11:04 118/58 09/01/16 11:00 51 13 09/01/16 11:00 51 13 100 09/01/16 10:59 51 16 09/01/16 10:59 51 16 120/58 100 09/01/16 10:54 51 11 09/01/16 10:54 50 11 119/56 100 09/01/16 10:49 51 13 122/54 100 09/01/16 10:49 51 13 09/01/16 10:44 49 16 09/01/16 10:44 49 16 113/53 100 09/01/16 10:39 48 10 09/01/16 10:39 47 10 122/57 100 09/01/16 10:38 36.9 09/01/16 10:35 58 16 100 09/01/16 10:35 54 16 09/01/16 10:34 120/47 09/01/16 10:30 51 15 100 09/01/16 10:30 51 15 09/01/16 10:29 95/66 09/01/16 10:25 51 14 99 09/01/16 10:25 51 14 09/01/16 10:24 102/45 09/01/16 10:20 53 15 09/01/16 10:20 53 15 100 09/01/16 10:19 113/48 09/01/16 10:15 51 10 09/01/16 10:15 51 10 100 09/01/16 10:14 108/51 09/01/16 10:10 53 10 100 09/01/16 10:10 52 10 09/01/16 10:08 106/47 09/01/16 10:00 36.6 52 16 106/47 98 Nasal Cannula 3 Physical Exam Comments: General: WD/WN male sitting in no apparent distress Wound on right hip appears dry, intact, with minimal drainage Extremities: No pedal edema Neuro: AAOx3 Laboratory Results Last 24 Hours Test 09/01/16 10:30 09/02/16 06:05 Triglycerides Level 59 mg/dl Cholesterol Level 138 mg/dl HDL Cholesterol 79 mg/dl LDL Cholesterol, Calculated 47 mg/dl VLDL Cholesterol, Calculated 12 mg/dl Cholesterol/HDL Ratio 1.7 White Blood Count 12.46 K/uL Red Blood Count 3.93 M/uL Hemoglobin 12.2 g/dL Hematocrit 36.5 % Mean Corpuscular Volume 92.9 fL Mean Corpuscular Hemoglobin 31.0 pg Mean Corpuscular Hemoglobin Concent 33.4 g/dl Platelet Count 178 K/uL Mean Platelet Volume 9.0 fL Neutrophils (%) (Auto) 84.1 % Lymphocytes (%) (Auto) 7.1 % Monocytes (%) (Auto) 7.7 % Eosinophils (%) (Auto) 0.8 % Basophils (%) (Auto) 0.1 % Neutrophils # (Auto) 10.48 K/uL Lymphocytes # (Auto) 0.89 K/uL Monocytes # (Auto) 0.96 K/uL Eosinophils # (Auto) 0.10 K/uL Basophils # (Auto) 0.01 K/uL RDW Standard Deviation 44.7 fL RDW Coefficient of Variation 13.1 % Immature Granulocyte % (Auto) 0.2 % Immature Granulocyte # (Auto) 0.02 K/uL Prothrombin Time 11.4 SECONDS Prothromb Time International Ratio 1.1 Sodium Level 139 mmol/L Potassium Level 4.0 mmol/L Chloride Level 104 mmol/L Carbon Dioxide Level 25 mmol/L Anion Gap 10.0 mmol/L Blood Urea Nitrogen 17 mg/dl Creatinine 1.30 mg/dl Est Creatinine Clear Calc Drug Dose 51.2 ml/min Estimated GFR () 66.4 Estimated GFR (Non- 57.3 BUN/Creatinine Ratio 13.2 Random Glucose 105 mg/dl Calcium Level 7.7 mg/dl Assessment and Plan Assessment and Plan: Patient is a 66 year old male who presents for post-op of total right hip arthroplasty on 09/01/16. He is doing well. Pelvic X-Ray depicts post-operative right hip arthroplasty. Wound dressing was changed today with no complications. CBC is significant for elevated WBC count which is likely secondary to stress from surgery. BMP and lipid profile are unremarkable. INR is currently 1.1. Patient will take 4 mg Coumadin and will have INR re-checked on Tuesday. He may be discharged home today following PT/OT evaluation and is interested in home health.
[2016-09-02] MEDS: BuPROPion SR 150 MG TABCR PO SCH (09:15)
[2016-09-02] MEDS: OXYCODONE HCL IR 5 MG TAB (IMMEDIATE RELEASE) PO PRN ×2 (09:15→14:16)
[2016-09-02] MEDS: DOCUSATE SODIUM 100 MG CAP PO SCH (09:15)
[2016-09-02] MEDS: FERROUS GLUCONATE 324 MG TAB PO SCH ×2 (09:15→12:14)
[2016-09-02] MEDS: POTASSIUM CITRATE 10 MEQ TAB PO SCH (09:15)
[2016-09-02 10:46] VITALS: BP 95/58; PULSE 65; TEMP 36.8; O2SAT 93
[2016-09-02] MEDS ORDERED: WARFARIN SOD 5 MG TAB PO ONE (11:15)
== END 2016-09-02 14:21 | disposition home health service (06) | DRG 470 ==
LOC: ENRESERVTM → ENRESERVDT → C.ACU 05:56 → C.MSW 06:20
PROVIDERS: ADMIT Physical Medicine & Rehabilitation Sports Medicine; ATTEND Physical Medicine & Rehabilitation Sports Medicine
PROC: 0SR90JA Replacement of Right Hip Joint with Synthetic Substitute, Uncemented, Open Approach (ICD-10-PCS; principal; 2016-09-01 08:45)
DX: M16.11 Unilateral primary osteoarthritis, right hip (principal); E03.9 Hypothyroidism, unspecified; K21.9 Gastro-esophageal reflux disease without esophagitis; M91.41 Coxa magna, right hip; N40.0 Benign prostatic hyperplasia without lower urinary tract symptoms; E78.5 Hyperlipidemia, unspecified; F32.9 Major depressive disorder, single episode, unspecified; I35.1 Nonrheumatic aortic (valve) insufficiency; F41.9 Anxiety disorder, unspecified; M26.609 Unspecified temporomandibular joint disorder, unspecified side; M54.2 Cervicalgia; M54.5 Low back pain; Z87.442 Personal history of urinary calculi; Z79.899 Other long term (current) drug therapy; Z79.82 Long term (current) use of aspirin; Z79.1 Long term (current) use of non-steroidal anti-inflammatories (NSAID)

== ENCOUNTER → 2016-09-06 | Outpatient (CLI) | payer BC ==
[~2016-09-06] MED LIST changes: +ALFU10TA2 PO; -ALFU10TA30 PO; +ATOR10TA82 PO; -ATOR10TA88 PO; -IBUP-1050 PO; -NAPR1TAB9 PO; -OMEG10007 PO; +OXYC-57 PO; +WARF2TAB PO
[2016-09-06 14:31] LABS: INR 1.8 (0.9-1.1); PROTHROMBIN TIME (PATIENT) 20.3 SECONDS (9.0-12.0)
--- NOTE | 2016-09-07 10:58 | CODING QUERY NO DIAGNOSIS ---
Valid Physician Order Needed 51 A valid physician order must be submitted in order to properly bill for the service(s) provided, including date of service(s), valid diagnosis, and physician signature. If these tests are done on a recurring basis the original physician order must be submitted in order to code and bill for the service(s) provided. Please fax us the original, signed physician order so that we may expedite billing to [phone] DOS 09/06/2016 * PTT/INR Thank you [facility] Information Management
== END | disposition home or self-care (01) ==
LOC: C.LABSPEC 11:25
PROVIDERS: ATTEND Physical Medicine & Rehabilitation Sports Medicine
DX: Z79.01 Long term (current) use of anticoagulants (principal)

== ENCOUNTER → 2016-09-10 | Outpatient (CLI) | payer BC ==
[2016-09-10 10:25] LABS: INR 1.8 (0.9-1.1); PROTHROMBIN TIME (PATIENT) 19.3 SECONDS (9.0-12.0)
--- NOTE | 2016-09-14 11:13 | CODING QUERY NO DIAGNOSIS ---
Valid Physician Order Needed 51 A valid physician order must be submitted in order to properly bill for the service(s) provided, including date of service(s), valid diagnosis, and physician signature. If these tests are done on a recurring basis the original physician order must be submitted in order to code and bill for the service(s) provided. Please fax us the original, signed physician order so that we may expedite billing to [phone] DOS 09/10/2016 * PROTHROMBIN TIME Thank you [facility] Information Management
== END | disposition home or self-care (01) ==
LOC: C.LABSPEC 10:04
PROVIDERS: ATTEND Physical Medicine & Rehabilitation Sports Medicine
DX: Z79.01 Long term (current) use of anticoagulants (principal); Z47.1 Aftercare following joint replacement surgery; Z96.641 Presence of right artificial hip joint; F41.9 Anxiety disorder, unspecified

== ENCOUNTER → 2016-09-16 | Outpatient (CLI) | payer BC ==
[~2016-09-16] MED LIST changes: -ALFU10TA2 PO; +ALFU10TA30 PO; -ATOR10TA82 PO; +ATOR10TA88 PO
--- NOTE | 2016-09-16 12:10 | DIAGNOSTIC IMAGING REPORT ---
KUB CLINICAL HISTORY: N20.0 [id number] nephrocalcinosis COMPARISON STUDY: 09/25/2015 FINDINGS: Diffuse bilateral nephrocalcinosis. This again is more prominent on the left as compared to the right. No significant change in the calcification configuration and distribution. No significant paravertebral calcifications. Several stable pelvic vascular calcifications. IMPRESSION: Stable bilateral nephrocalcinosis Electronically signed by: Guilherme Gómez M.D. 09/16/2016 12:09 PM Dictated Date/Time: 09/16/2016 12:08 PM
== END | disposition home or self-care (01) ==
LOC: C.RAD1850 11:50
PROVIDERS: ATTEND Urology
DX: N20.0 Calculus of kidney (principal); E83.59 Other disorders of calcium metabolism; N29 Other disorders of kidney and ureter in diseases classified elsewhere

== ENCOUNTER → 2016-10-11 | Outpatient (CLI) | payer BC ==
[~2016-10-11] MED LIST changes: +ALFU10TA2 PO; -ALFU10TA30 PO; +ATOR10TA82 PO; -ATOR10TA88 PO
== END | disposition home or self-care (01) ==
LOC: C.RDSM 15:00
PROVIDERS: ATTEND Physical Medicine & Rehabilitation Sports Medicine
DX: M25.551 Pain in right hip (principal)

== ENCOUNTER → 2017-01-10 | Outpatient (CLI) | payer BC ==
[~2017-01-10] MED LIST changes: -ALFU10TA2 PO; +ALFU10TA30 PO; -ATOR10TA82 PO; +ATOR10TA88 PO
== END | disposition home or self-care (01) ==
LOC: C.RDSM 07:45
PROVIDERS: ATTEND Physical Medicine & Rehabilitation Sports Medicine
DX: M25.851 Other specified joint disorders, right hip (principal); M16.11 Unilateral primary osteoarthritis, right hip; Z96.649 Presence of unspecified artificial hip joint

== ENCOUNTER → 2017-03-18 | Outpatient (CLI) | payer BC ==
[~2017-03-18] MED LIST changes: -OXYC-57 PO; -WARF2TAB PO
[2017-03-18 12:29] LABS: BASO % 0.6 %; BASO ABS # 0.04 K/uL (0-0.2); COMPLETE YES; EOS % 4.9 %; HEMATOCRIT 43.1 % (42-52); IG% 0.2 %; LYMPH % 13.9 %; MEAN CELL VOLUME 92.1 fL (80-100); MEAN CORPUSCULAR HEMOGLOBIN 31.6 pg (25-34); MEAN CORPUSCULAR HGB CONC 34.3 g/dl (32-36); MEAN PLATELET VOLUME 8.9 fL (7.4-10.4); NEUT % 72.4 %; PLATELET COUNT 236 K/uL (130-400); RED BLOOD COUNT 4.68 M/uL (4.7-6.1); WHITE BLOOD COUNT 6.48 K/uL (4.8-10.8)
[2017-03-18 13:18] LABS: ALT/SGPT 17 U/L (12-78); BLOOD UREA NITROGEN 17 mg/dl (7-18); BUN/CREATININE RATIO 12.7 (10-20); CALCIUM 9.3 mg/dl (8.5-10.1); CARBON DIOXIDE 29 mmol/L (21-32); CHLORIDE 107 mmol/L (98-107); CHOLESTEROL 149 mg/dl (0-200); GLUCOSE 96 mg/dl (70-99); POTASSIUM 4.1 mmol/L (3.5-5.1); SODIUM 141 mmol/L (136-145)
[2017-03-18 13:28] LABS: ALB/GLOB RATIO 1.2 (0.9-2); ALKALINE PHOSPHATASE 71 U/L (45-117); AST/SGOT 18 U/L (15-37); CHOLESTEROL/HDL RATIO 1.5; HDL CHOLESTEROL 98 mg/dl; LDL CHOLESTEROL CALCULATED 41 mg/dl; THYROID STIMULATING HORMONE 0.527 uIu/ml (0.300-4.500); TRIGLYCERIDES 49 mg/dl (0-150); VERY LOW DENSITY LIPOPROT CALC 10 mg/dl
== END | disposition home or self-care (01) ==
LOC: C.LABBFT 11:09
PROVIDERS: ATTEND Internal Medicine
DX: N20.0 Calculus of kidney (principal); N40.1 Benign prostatic hyperplasia with lower urinary tract symptoms; N52.9 Male erectile dysfunction, unspecified; D64.9 Anemia, unspecified; E03.9 Hypothyroidism, unspecified; E78.5 Hyperlipidemia, unspecified

== ENCOUNTER → 2017-06-08 | Outpatient (CLI) | payer BC ==
[~2017-06-08] MED LIST changes: +ALFU10TA2 PO; -ALFU10TA30 PO; +ATOR10TA82 PO; -ATOR10TA88 PO
--- NOTE | 2017-06-08 18:20 | DIAGNOSTIC IMAGING REPORT ---
TWO VIEW CHEST CLINICAL HISTORY: Cough. Question foreign body aspiration. FINDINGS: PA and lateral chest radiographs are compared to study dated 04/04/2015 and correlated with chest CT dated 06/08/2016. The cardiomediastinal silhouette is unremarkable. There is mild atherosclerotic calcification of the thoracic aorta. The lungs appear hyperinflated and hyperlucent with flattening the diaphragm suggesting obstructive physiology. Chronic residual thickening is similar to previous. No airspace consolidation or pleural effusion is identified. No radiodense foreign body is seen. There is no pneumothorax. The bony thorax appears intact. IMPRESSION: Suspect emphysema. No acute cardiopulmonary abnormality is seen. Electronically signed by: Jaciel John M.D. 06/08/2017 6:18 PM Dictated Date/Time: 06/08/2017 6:17 PM
== END | disposition home or self-care (01) ==
LOC: C.RAD 17:54
PROVIDERS: ATTEND Internal Medicine
DX: R05 Cough (principal)

== ENCOUNTER → 2017-08-19 | Outpatient (CLI) | payer BC ==
[~2017-08-19] MED LIST changes: +ACET-1693 PO; -ACET325T96 PO
== END | disposition home or self-care (01) ==
LOC: C.LABSPEC 17:22
PROVIDERS: ATTEND Physician Assistant
DX: K14.3 Hypertrophy of tongue papillae (principal)

== ENCOUNTER → 2017-09-06 | Outpatient (CLI) | payer BC | END | disposition home or self-care (01) | LOC: C.LABBFT 15:36 | PROVIDERS: ATTEND Physician Assistant Medical | DX: J02.9 Acute pharyngitis, unspecified (principal) ==

== ENCOUNTER → 2017-09-16 | Outpatient (CLI) | payer BC ==
[2017-09-16 13:03] LABS: ALT/SGPT 22 U/L (12-78); BLOOD UREA NITROGEN 17 mg/dl (7-18); CARBON DIOXIDE 28 mmol/L (21-32); CHOLESTEROL 137 mg/dl (0-200); GLUCOSE 88 mg/dl (70-99); POTASSIUM 4.4 mmol/L (3.5-5.1); SODIUM 138 mmol/L (136-145)
[2017-09-16 13:14] LABS: ALKALINE PHOSPHATASE 69 U/L (45-117); AST/SGOT 23 U/L (15-37); LDL CHOLESTEROL CALCULATED 42 mg/dl; TOTAL PROTEIN 7.3 gm/dl (6.4-8.2)
== END | disposition home or self-care (01) ==
LOC: C.LABBFT 07:52
PROVIDERS: ATTEND Internal Medicine
DX: N20.0 Calculus of kidney (principal); N40.1 Benign prostatic hyperplasia with lower urinary tract symptoms; N20.1 Calculus of ureter; N52.9 Male erectile dysfunction, unspecified; E03.9 Hypothyroidism, unspecified; E78.5 Hyperlipidemia, unspecified; I10 Essential (primary) hypertension; R53.83 Other fatigue; Z13.6 Encounter for screening for cardiovascular disorders; E78.00 Pure hypercholesterolemia, unspecified

== ENCOUNTER → 2017-09-23 | Outpatient (CLI) | payer BC ==
--- NOTE | 2017-09-23 07:55 | DIAGNOSTIC IMAGING REPORT ---
(BARIUM SWALLOW) ESOPHAGUS CLINICAL HISTORY: R05, dysphasia, heartburn/reflux. COMPARISON STUDY: None FLUOROSCOPY TIME: 1.6 minutes. NUMBER OF FLUOROSCOPIC IMAGES: 25 FINDINGS: The patient swallowed effervescent granules and barium without difficulty. Rapid sequence swallows in the AP and lateral projections were unremarkable. No esophageal masses or also rations were visualized. The patient swallowed a one half inch barium tablet which freely passed into the stomach. No reflux was demonstrated. IMPRESSION: Normal study Electronically signed by: Fadi Hong M.D. 09/23/2017 7:54 AM Dictated Date/Time: 09/23/2017 7:52 AM
== END | disposition home or self-care (01) ==
LOC: C.RAD 07:14
PROVIDERS: ATTEND Physician Assistant
DX: R05 Cough (principal)

== ENCOUNTER → 2017-09-30 | Outpatient (CLI) | payer BC | END | disposition home or self-care (01) | LOC: C.LABBFT 07:31 | PROVIDERS: ATTEND Physician Assistant Medical | DX: E03.9 Hypothyroidism, unspecified (principal) ==

== ENCOUNTER → 2017-11-02 | Outpatient (CLI) | payer BC ==
--- NOTE | 2017-11-02 13:49 | DIAGNOSTIC IMAGING REPORT ---
KUB CLINICAL HISTORY: N20.0 [id number] nephrocalcinosis COMPARISON STUDY: 09/16/2016 FINDINGS: Bilateral nephrocalcinosis unchanged from the prior study. Unchanged bowel pattern. Several pelvic vascular calcifications also unchanged. Patient is status post total right hip arthroplasty. IMPRESSION: Stable bilateral nephrocalcinosis. No significant change from the prior study. The above report was generated using voice recognition software. It may contain grammatical, syntax or spelling errors. Electronically signed by: Guilherme Gómez M.D. 11/02/2017 1:48 PM Dictated Date/Time: 11/02/2017 1:46 PM
== END | disposition home or self-care (01) ==
LOC: C.RAD 13:10
PROVIDERS: ATTEND Urology
DX: N20.0 Calculus of kidney (principal)

== ENCOUNTER → 2018-02-13 | Outpatient (CLI) | payer BC | END | disposition home or self-care (01) | LOC: C.LABSPEC 10:45 | PROVIDERS: ATTEND Nurse Practitioner Family | DX: N20.0 Calculus of kidney (principal) ==

== ENCOUNTER → 2018-02-13 | Outpatient (CLI) | payer BC ==
--- NOTE | 2018-02-13 18:33 | DIAGNOSTIC IMAGING REPORT ---
KUB CLINICAL HISTORY: Nephrolithiasis. COMPARISON STUDY: KUB November 02, 2017. FINDINGS: Extensive bilateral nephrolithiasis is similar to exam of November 02, 2017. No ureteral calculi are identified. Pelvic calcifications are unchanged and likely reflect phleboliths. A right hip arthroplasty is noted. The bowel gas pattern is normal. IMPRESSION: 1. No significant change in extensive bilateral nephrolithiasis. 2. No ureteral calculi identified. Electronically signed by: Eh Crump M.D. 02/13/2018 6:32 PM Dictated Date/Time: 02/13/2018 6:30 PM
== END | disposition home or self-care (01) ==
LOC: C.RAD 16:59
PROVIDERS: ATTEND Nurse Practitioner Family
DX: N20.0 Calculus of kidney (principal)

== ENCOUNTER 2019-01-03 04:57 | Inpatient (IN) ==
--- NOTE | 2018-12-11 10:17 | PAT Medication Instructions ---
Medication Instructions Date of Service December 11, 2018 Home Medications Al hyd-Mg tr-alg ac-sod bicarb [Gaviscon] 1 tab PO DAILY NEEDED acetaminophen 500 mg PO Q6H NEEDED alfuzosin 10 mg PO QDD amoxicillin 250 mg PO DIRECTED NEEDED atorvastatin 10 mg PO PM bupropion HCl 150 mg PO BID levothyroxine 100 mcg PO QAM losartan 50 mg PO QAM melatonin 3 mg PO HS meloxicam 15 mg PO QAM oqikvcvm-wjj-HM-lycopen-lutein [Centrum Silver Men] 1 tab PO QAM tajpu-[id number]-qus-epa-fish oil [[place]-3 Fish Oil] 1 cap PO BID polyethylene glycol 3350 8.5 g PO QAM potassium citrate 1,080 mg PO BID ranitidine HCl 150 mg PO BID sertraline 100 mg PO QDB trazodone 50 mg PO HS Continue as directed amoxicillin 250 mg PO DIRECTED NEEDED ASK your surgeon for instructions meloxicam 15 mg PO QAM - STOP 5 DAYS BEFORE SURGERY STOP taking 2 weeks before surgery rtgtu-[id number]-tai-epa-fish oil [[place]-3 Fish Oil] 1 cap PO BID DO NOT take the morning of surgery Al hyd-Mg tr-alg ac-sod bicarb [Gaviscon] 1 tab PO DAILY NEEDED losartan 50 mg PO QAM sfukmnld-vqv-RX-lycopen-lutein [Centrum Silver Men] 1 tab PO QAM polyethylene glycol 3350 8.5 g PO QAM potassium citrate 1,080 mg PO BID Take morning of surgery With a small sip of water, OTHERWISE NOTHING TO EAT OR DRINK AFTER MIDNIGHT: acetaminophen 500 mg PO Q6H NEEDED (if needed; stop 4 hours before surgery) bupropion HCl 150 mg PO BID levothyroxine 100 mcg PO QAM ranitidine HCl 150 mg PO BID sertraline 100 mg PO QDB Take evening before surgery Al hyd-Mg tr-alg ac-sod bicarb [Gaviscon] 1 tab PO DAILY NEEDED (if needed) acetaminophen 500 mg PO Q6H NEEDED (if needed) alfuzosin 10 mg PO QDD atorvastatin 10 mg PO PM bupropion HCl 150 mg PO BID melatonin 3 mg PO HS potassium citrate 1,080 mg PO BID ranitidine HCl 150 mg PO BID trazodone 50 mg PO HS Other Notes If you have any questions please call us at [phone] or [phone] or [phone] or [phone]
--- NOTE | 2018-12-11 10:17 | Anesthesiology Consultation ---
Date of Service December 11, 2018 Assessment & Plan (1) Encounter for pre-operative examination: Chart Review Chart Review: Acceptable Risk for Surgery and Patient seen in Pre Admission Testing Consults Requested medical (Dr. Adams (12/11)) Patient was seen by PCP's office on 12/11 and a clearance request was returned indicating that "Yes", patient is medically cleared for surgery. Per visit note from that day, "Patient is stable for hip replacement surgery." Teaching & Discussion Pre-Anesthesia Teaching/Discussion Notes: Instructed NPO after midnight before surgery, except medications with 15 cc of water. Medication instructions provided according to the PAT guidelines. History Surgery Operation Date: 01/03/19 09:00 Proposed Procedures p Left Total Hip Arthroplasty - Austin Ross MD Height/Weight Height: 5 ft 8 in Weight: 67.5 kg Allergies Allergy/AdvReac Type Severity Reaction Status Date / Time Cipro AdvReac Mild TINGLING Verified 09/01/16 06:50 FEELING FROM IV - CUT THE RATE IN HALF - AND WAS OK ciprofloxacin AdvReac Mild Verified 12/11/18 14:39 Medications Home Medications Medication Instructions Recorded Confirmed Last Taken Al hyd-Mg tr-alg ac-sod bicarb 1 tab PO DAILY PRN 12/06/18 12/11/18 Unknown [Gaviscon] acetaminophen 500 mg PO Q6H PRN 12/06/18 12/11/18 Unknown alfuzosin 10 mg PO QDD 12/06/18 12/11/18 Unknown amoxicillin 250 mg PO DIRECTED PRN 12/06/18 12/11/18 Unknown atorvastatin 10 mg PO PM 12/06/18 12/11/18 Unknown bupropion HCl 150 mg PO BID 12/06/18 12/11/18 Unknown levothyroxine 100 mcg PO QAM 12/06/18 12/11/18 Unknown losartan 50 mg PO QAM 12/06/18 12/11/18 Unknown melatonin 3 mg PO HS 12/06/18 12/11/18 Unknown meloxicam 15 mg PO QAM 12/06/18 12/11/18 Unknown grytibxy-jun-KL-lycopen-lutein 1 tab PO QAM 12/06/18 12/11/18 Unknown [Centrum Silver Men] wwdzv-5r-ldo-epa-fish oil [Shields-3 1 cap PO BID 12/06/18 12/11/18 Unknown Fish Oil] polyethylene glycol 3350 8.5 g PO QAM 12/06/18 12/11/18 Unknown potassium citrate 1,080 mg PO BID 12/06/18 12/11/18 Unknown ranitidine HCl 150 mg PO BID 12/06/18 12/11/18 Unknown sertraline 100 mg PO QDB 12/06/18 12/11/18 Unknown trazodone 50 mg tablet 50 mg PO HS PRN 12/11/18 12/11/18 Unknown vitamin E topical cream 1 appln TOP DAILY gm 12/11/18 12/11/18 Unknown Past Medical History Medical History DJD (degenerative joint disease) of hip (Acute) Degeneration of cervical intervertebral disc (Chronic) Diverticulosis (Chronic) Lactose intolerance (Chronic) Bronchitis (Resolved) Kidney stones (Resolved) Left inguinal hernia (Resolved) Transient global amnesia (Resolved) BPH (benign prostatic hyperplasia) History of kidney stones Hx of mitral valve insufficiency Exercise / Class Metabolic Activity II 4-5 Yardwork/Stairs/Walk up hill (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 Denies CP or SOB. (Does report some SOB outside this winter when unloading luggage)) Past Surgical History Surgical History H/O lithotripsy (Resolved) History of total right hip replacement Hx of detached retina repair BOTH EYES Hx of inguinal hernia repair LEFT - 04/10/15 - [place] #2, ETT #8.0, Grade 3 View (Unable to obtain with MAC 3) Hx of tonsillectomy Past Anesthesia History No Hx of Anesthesia Complications and No Family Hx of Anesthesia Complications History of PONV No Hx of PONV and No Hx of Motion Sickness Social History Smoking Status: Never smoker Do You Dip or Chew Tobacco: No Hx Alcohol Use: Yes Alcohol type: beer and wine alcohol intake frequency: a few times a month Hx Substance Use: No Review of Systems Patient denies chest pain, shortness of breath, dyspnea on exertion, wheezing, palpitations. +Joint Pain (Hip, Shoulder, Hands, Feet) +Acid Reflux (Controlled with Ranitidine and gaviscon prn) +Cough (chronic dry cough due to COPD) Physical Exam Vital Signs BP: 130/70 P: 56 R: 16 T: 97.6 SPO2: 97% on RA ENMT Thyromental Distance: < 3.5 Finger Breadths (3) Mallampati Class: II Neck normal visual inspection, trachea midline and + facial hair ([place] - Advised, will trim); neck extension not limited Respiratory normal respiratory effort Auscultation: lungs clear to auscultation bilaterally Cardiovascular Rate/Rhythm: regular rate and regular rhythm Heart Sounds: no murmur Vessels: no carotid bruit Neurologic moves all extremities Psychiatric Orientation: alert and oriented x 3 Testing Laboratory Results 12/11/18 10:53 12/11/18 10:53 12/11/18 12/11/18 12/11/18 10:53 10:53 10:53 PT 11.0 INR 1.1 APTT 25.8 Urine Color Yellow Urine Appearance Turbid A Urine pH 8.0 H Ur Specific [place] 1.020 Urine Protein Negative Urine Glucose (UA) Negative Urine Ketones Negative Urine Nitrite Negative Ur Leukocyte Esterase 1+ H Urine WBC (Auto) 10-30 H Urine RBC (Auto) 5-10 H U Hyaline Cast (Auto) 5-10 H U Epithel Cells (Auto) 10-20 H Urine Bacteria (Auto) Negative Blood Type AB Positive Antibody Screen NEGATIVE Electrocardiogram Date: 12/11/18 Findings: + SB @ (54) and + no change from (08/27/16) Chest X-Ray Date: 12/11/18 Findings: + NAD FINDINGS: There is mild lung hyperexpansion. There is no pneumothorax or pleural effusion. Cardiac size is normal. Mediastinal contours are normal. Minimal lingular and right middle lobe opacity favors atelectasis. No consolidation to suggest pneumonia. IMPRESSION: No acute cardiopulmonary findings. Echocardiogram Date: 11/03/18 EF: 60-65% Normal left ventricular size and systolic function. EF 60-65%. No RWMA. No LVH. Mild aortic regurgitation Normal estimated right ventricular systolic pressure. Similar findings compared to prior study on 10/21/17. Stress Test Date: 11/21/15 Type: exercise Resting EF: 55-60% Stress ECHO: - Negative stress ECHO for ischemia at 92% MPHR. - Negative exercise ECG for ischemia at 92% MPHR. - No reported chest pain. - No arrhythmia. - Appropriate blood pressure response to exercise. - Fair exercise tolerance. ECHO: - Mildly dilated left ventricle with normal systolic function. Estimated EF 55-60%. No RWMA. Type I diastolic dysfunction. No LVH. - Mil to moderate aortic regurgitation. - Mildly dilated aortic root.
--- NOTE | 2018-12-11 11:39 | XRay Report ---
XR chest Pre-admission PA/Lat CLINICAL HISTORY: Preoperative evaluation. COMPARISON STUDY: Chest radiograph April 04, 2015. Chest CT June 08, 2016. FINDINGS: There is mild lung hyperexpansion. There is no pneumothorax or pleural effusion. Cardiac si ze is normal. Mediastinal contours are normal. Minimal lingular and right middle lobe opacity favors atelectasis. No consolidation to suggest pneumonia. IMPRESSION: No acute cardiopulmonary findings. Electronically signed by: Eh Crump M.D. 12/11/2018 11:38 AM
[2018-12-11 12:03] LABS: Basophils # (auto) 0.04 K/uL (0-0.2); Basophils % (auto) 0.5 %; Eosinophils # (auto) 0.25 K/uL (0-0.5); Eosinophils % (auto) 3.4 %; Hematocrit (blood only) 40.8 % (42-52); Hemoglobin 13.9 g/dL (14.0-18.0); Immature Granulocytes # (auto) 0.02 K/uL (0.00-0.02); Immature Granulocytes % (auto) 0.3 %; Lymphocytes # (auto) 1.05 K/uL (1.2-3.4); Lymphocytes % (auto) 14.3 %; Mean Corpuscular Hgb Conc 34.1 g/dL (32-36); Mean Platelet Volume 8.7 fL (7.4-10.4); Monocytes # (auto) 0.57 K/uL (0.11-0.59); Monocytes % (auto) 7.8 %; Neutrophils # (auto) 5.39 K/uL (1.4-6.5); Neutrophils % (auto) 73.7 %; Platelet Count 215 K/uL (130-400); RDW Standard Deviation 44.7 fL (36.4-46.3); Red Blood Count 4.34 M/uL (4.7-6.1); White Blood Count 7.32 K/uL (4.8-10.8)
[2018-12-11 12:11] LABS: Appearance Urine Turbid (Clear); Bacteria Urine Automated Negative (Negative); Bilirubin Urine Negative (Negative); Blood Urine Negative (Negative); Color Urine Yellow; Glucose Urine UA Negative (Negative); Ketones Urine Negative (Negative); Leukocyte Esterase Urine 1+ (Negative); Nitrite Urine Negative (Negative); Protein Urine Negative (Negative); Urobilinogen Urine Negative (Negative)
[2018-12-11 12:12] LABS: INR 1.1 (0.9-1.1); Partial Thromboplastin Time 25.8 Seconds (21.0-31.0)
[2018-12-11 12:32] LABS: BUN Creatinine Ratio 17.2 (10-20); Calcium 9.2 mg/dl (8.5-10.1); Creatinine Clr Calc Pharmacy 46.9 ml/min; Est GFR (African American) 56.9; Est GFR (Non-African American) 49.1; Potassium 4.6 mmol/L (3.5-5.1)
--- NOTE | 2018-12-14 16:11 | History and Physical Report ---
DATE OF ADMISSION: 01/03/2019 CHIEF COMPLAINT: Left hip pain. HISTORY OF PRESENT ILLNESS: This 68-year-old white male presents with his with complaints of left hip pain. He has a longstanding history of left hip discomfort. It has become worse over the last 6 months. It is worse with weightbearing. He denies any numbness or tingling. No specific trauma. He has a history of previous right total hip arthroplasty that is feeling well. He elects to proceed with the same on the left. No catching or locking. He does note loss of motion. Pain is affecting his ADLs. Preoperative imaging has been obtained. PAST MEDICAL HISTORY: Significant for hypertension, elevated cholesterol, mild COPD, depression, hypothyroidism, kidney stones, reflux, osteoarthritis, hiatal hernia, and BPH. PREVIOUS SURGERIES: Right total hip arthroplasty in 09/01/2016, herniorrhaphy in 2014, tonsillectomy in 1950, sebaceous cyst removal in 1989, shave biopsy of the skin in 2015. ALLERGIES: KNOWN ALLERGY TO CIPRO. CURRENT MEDICATIONS: Alfuzosin 10 mg p.o. daily, oxacillin p.r.n. dental visits, atorvastatin 10 mg p.o. daily, biotin oral solution daily, bupropion 150 mg p.o. b.i.d., multivitamin daily, Colace p.r.n., fish oil 1000 mg b.i.d., Gaviscon extra strength 1 tablet p.r.n., Levothroid 100 mcg p.o. daily, losartan daily, potassium 50 mg p.o. daily, melatonin 1-3 mg p.r.n., meloxicam 15 mg p.o. daily, MiraLax powder 17 g half teaspoon daily, naproxen 220 mg p.o. t.i.d., potassium citrate 1080 mg b.i.d., ranitidine 150 mg p.o. daily p.r.n., sertraline 25 mg p.o. daily, trazodone 100 mg p.o. at bedtime, Tylenol p.r.n., vitamin E moisturizing cream p.r.n. FAMILY HISTORY: Noncontributory. Parents are . SOCIAL HISTORY: The patient is . No tobacco use, rare ETOH use. Employed. REVIEW OF SYSTEMS: A total of 10 systems are reviewed and are significant only for above stated conditions. PHYSICAL EXAMINATION: GENERAL: Well-developed, well-nourished elderly white male in no acute distress. Sitting on a bed. Alert and oriented. SKIN: Warm and dry with good turgor. No rashes or lesions. No ecchymosis or erythema. HEENT: Normocephalic, atraumatic. Eyes: PERRLA, EOMI. Nares patent bilaterally without turbinate enlargement. Oropharynx without erythema or exudate. No lesions noted. Uvula midline. Oral mucosa moist. Fillings are noted. HEART: RRR. No MGR. LUNGS: Clear to auscultation bilaterally. No crackles, rhonchi or wheezing. Good air movement. ABDOMEN: Bowel sounds present x4, soft, nontender. No organomegaly. No masses. MUSCULOSKELETAL: Left hip evaluation reveals no obvious pain with palpation over the IT band or greater trochanter. He does have discomfort with palpation over the anterior flexion crease. Strength is 5/5 for resisted hip flexion, abduction, and adduction. External rotation of around 45 degrees, internal rotation of only around 5 degrees before onset of pain. He maxes out at about 10 degrees secondary to bony block. Hip flexion of 110 degrees, also limited by pain. There is groin pain with every weightbearing step. No palpable crepitus. No visible cogwheeling. No pain with palpation over his ischial tuberosity or gluteal muscles. NEUROLOGIC: Cranial nerves II through XII are intact. Gross sensation is intact across the left leg by soft touch. Peripheral pulses are 2+. DATA: Radiographic imaging previously obtained of the left hip shows moderate osteoarthritic changes within the femoral acetabular joint. He does have joint space narrowing, periarticular osteophytes, and a Cam lesion. IMPRESSION: Left hip end-stage degenerative joint disease. PLAN: Postoperative prescriptions for Percocet and Coumadin will be provided at discharge from the hospital. Anticipate discharge to home with Home Health Services. He already has a cane and walker. Preoperative lab work, EKG, and chest x-ray have been ordered. Medical clearance has been requested from his PCP, Dr. Adams. Informed written consent to proceed with left total hip arthroplasty will be obtained the morning of surgery by Dr. Ross.
[2019-01-03] MEDS ORDERED: LR 60ML/HR IV SCH (06:00)
[2019-01-03] MEDS ORDERED: CEFAZOLIN 2000MG 2,000 MG/15 ML SYR IV SCH (06:00)
[2019-01-03] MEDS ORDERED: TRANEXAMIC ACID 1,000 MG **IV Pre-op IV SCH (06:00)
[2019-01-03] MEDS ORDERED: ROPIVACAINE 0.5% HCL/PF 150 MG, BUPIVACAINE 0.5% MPF 30 ML, EPINEPHrine 0.15 MG, Ketoro... INFIL SCH (06:00)
[2019-01-03] MEDS ORDERED: LR 500ML BOLUS, THEN 15ML/HR IV SCH (06:00)
[2019-01-03] MEDS ORDERED: BUPIVACAINE 0.5 % 5 MG/1 ML PF 10ML VIAL ONE (06:28)
[2019-01-03] MEDS ORDERED: ORTHO JOINT ANESTHETIC ONE (06:29)
--- NOTE | 2019-01-03 06:35 | History & Physical Bridge Note ---
Date of Service January 03, 2019 History & Physical Bridge Note I have examined the patient, reviewed the History & Physical and in the interval since the performance of the History & Physical I have noted the following changes of clinical significance:consent obtained. no changes noted
[2019-01-03] MEDS ORDERED: ONDANSETRON INJ 2 MG/ML 2 ML VIAL IV PRN ×2 (06:46→10:03)
[2019-01-03] MEDS ORDERED: ATROPINE SULFATE 0.1 MG/ML 10ML SYR IV PRN (06:46)
[2019-01-03] MEDS ORDERED: KETOROLAC TROMETHAMINE 15 MG/ML VIAL IV PRN ×2 (06:46→10:03)
[2019-01-03] MEDS ORDERED: HYDROmorphone INJ 1 MG/ML SYRINGE IV PRN (06:46)
[2019-01-03] MEDS ORDERED: ePHEDrine sulfate 50 MG/ML AMP IV PRN (06:46)
[2019-01-03] MEDS ORDERED: PHENYLEPHRINE 100MCG/ML 5ML SYR IV PRN (06:46)
[2019-01-03] MEDS ORDERED: MIDAZOLAM HCL 1 MG/ML 2ML VIAL ONE ×2 (06:48→07:47)
[2019-01-03] MEDS ORDERED: ePHEDrine sulfate 50 MG/ML SYR ONE (07:56)
[2019-01-03] MEDS ORDERED: PROPOFOL IV EMULSION 10 MG/ML 20 ML VIAL IV ONE (08:18)
[2019-01-03] MEDS ORDERED: ePHEDrine sulfate 50 MG/ML AMP ONE (08:18)
[2019-01-03] MEDS ORDERED: GLYCOPYRROLATE 0.2 MG/ML VIAL ONE (08:18)
[2019-01-03] MEDS ORDERED: PHENYLEPHRINE 100MCG/ML 5ML SYR ONE (08:20)
--- NOTE | 2019-01-03 08:29 | Post Operative Brief Note ---
Immediate Post Op Note v1 Date of Surgery January 03, 2019 Pre & Post Diagnosis Operation Date: 01/03/19 07:00 Pre-Op Diagnosis: Left Hip End-Stage Degenerative Joint Disease Post-Op Diagnosis: Left Hip End-Stage Degenerative Joint Disease Procedure Operation Date: 01/03/19 07:00 Actual Procedures p Left Total Hip Arthroplasty(Left) - Austin Ross MD Surgeon Austin Ross MD Master Cook seselect specialty hospitalk Estimated Blood Loss 300 Findings Consistent with Post-Op Diagnosis
--- NOTE | 2019-01-03 08:36 | Operative Report ---
Post Operative Report Pre & Post Diagnosis Operation Date: 01/03/19 07:00 Pre-Op Diagnosis: Left Hip End-Stage Degenerative Joint Disease Post-Op Diagnosis: Left Hip End-Stage Degenerative Joint Disease Procedure Operation Date: 01/03/19 07:00 Actual Procedures p Left Total Hip Arthroplasty(Left) - Austin Ross MD Surgeon DIVYA Ross MD Meeting Specialist senicki Estimated Blood Loss 300 Findings Consistent with Post-Op Diagnosis Specimens see operative report Drains none Complications none Disposition Accompanied Patient To Recovery: Yes Disposition: Recovery Room I attest to the content of the Intraoperative Record and any orders documented therein. Any exceptions are noted below.
--- NOTE | 2019-01-03 08:53 | Operative Report ---
DATE OF OPERATION: 01/03/2019 SURGEON: Austin Ross MD FINANCIAL REP: Denis Garcia PA-C. No resident or fellow available. PREOPERATIVE DIAGNOSIS: Osteoarthritis, left hip. POSTOPERATIVE DIAGNOSIS: Osteoarthritis, left hip. OPERATION PERFORMED: Left total hip replacement, noncemented. PERIOPERATIVE SITUATION: Medically cleared male with intractable hip pain on his left side, had a previous right hip replacement and has done well with that. He is requesting to have the left hip replaced. He understands the risks and consequences. SUMMARY OF IMPLANTS: Size 50 acetabular shell sector cup hole eliminator, cancellous screw 6.5 x 30, four high offset Tri-Lock, 32 x 50 neutral liner, 32+5 ceramic head. ESTIMATED BLOOD LOSS: 300 mL. DVT prophylaxis with Coumadin. DESCRIPTION OF PROCEDURE: The patient appropriately identified, site verified, consent verified, antibiotic confirmed as being given. The left lower extremity was prepped and draped in usual routine fashion. The exposure of the left hip was then carried out. Posterior approach was made. Sharp dissection was carried to skin and blunt dissection down to the fascia. This was then incised longitudinally and split into the gluteus tod. Care taken to protect the sciatic nerve, deep retractors placed. He had a very muscular hip. Very vascular. The short external rotators were released. The capsule was T'd, the hip was dislocated. The femoral neck was resected. The femoral neck was revised, resected. There was exuberant bony bleeding. This was cauterized and packed. The labrum was excised. Acetabular retractors were placed. Excellent exposure obtained. Serial reaming carried up to a 50 and a 50 cup impacted into appropriate anteversion and inclination. There was excellent press fit. A 6.5 x 30 screw was placed with excellent purchase. Trial liner seated. Minor osteophytes removed from the posterior aspect of the acetabulum. The wound was irrigated with Betadine prior to impacting the cup and Pulsavac as well. The femur was then flexed and internally rotated. The proximal femur prepared with box storage worker, lateralizing rasp, canal finder and serial broaching up to a size 4 and a size 4 high offset +5 gave the leg lengths to be just about equal. It was slightly long on the left to begin with and we matched that and stability was excellent. The hip was then dislocated, the trial implants were removed. The wound irrigated with Betadine, Pulsavac, hole eliminator seated, permanent liner seated, permanent stem and head seated. The hip reduced. It was stable in all planes. Leg lengths were good. The wound was irrigated with Betadine and then closed with #2 Vicryl for the short external rotators, #2 Vicryl for the IT band and the gluteus tod fascia and deep subcutaneous layer. This area was then injected with roughly 40 mL of Orthomix. The wound was then closed with 2-0 Vicryl and stainless steel clips. Appropriate dressing applied. The patient transferred to recovery room in satisfactory condition having tolerated the procedure well. EBL again was as noted above. Summary of implants as noted above. Pathology pending on bone. I attest to the content of the Intraoperative Record and any orders documented therein. Any exception s are noted below.
--- NOTE | 2019-01-03 08:59 | XRay Report ---
XR pelvis 1-2V routine CLINICAL HISTORY: Postoperative evaluation. COMPARISON: Pelvis radiograph December 11, 2018. FINDINGS: Alignment of the total left hip arthroplasty is anatomic. There is no periprosthetic fract ure or unexpected radiopaque foreign body. There are skin april. Acetabular screw is noted. A right hip arthroplasty is noted. IMPRESSION: Expected findings following total left hip arthroplasty. Electronically signed by: Eh Crump M.D. 01/03/2019 8:58 AM
[2019-01-03] MEDS ORDERED: BISACODYL 10 MG SUPP PR PRN (10:03)
[2019-01-03] MEDS ORDERED: METOCLOPRAMIDE HCL INJ 5 MG/ML 2 ML VIAL IV PRN (10:03)
[2019-01-03] MEDS ORDERED: HYDROmorphone INJ 0.5 MG/0.5 ML SYR IV PRN (10:03)
[2019-01-03] MEDS ORDERED: DiphenhydrAMINE HCL 50 MG/ML VIAL IV PRN (10:03)
[2019-01-03] MEDS ORDERED: ALUMINUM/MAGNESIUM SUSP 30 ML UDC PO PRN (10:03)
[2019-01-03] MEDS ORDERED: MAGNESIUM HYDROXIDE SUSP 30 ML UDC PO PRN (10:03)
[2019-01-03] MEDS ORDERED: TAMSULOSIN HCL 0.4 MG CAP PO PRN (10:03)
[2019-01-03] MEDS ORDERED: NALOXONE HCL 0.4 MG/1 ML VIAL/CARP IV PRN (10:03)
[2019-01-03] MEDS: BuPROPion XL 150 MG TABCR PO SCH ×2 (10:36→21:24)
[2019-01-03] MEDS: SODIUM CHLORIDE 0.9% 1000ML 1,000 ML IV SCH ×2 (10:37→22:40)
--- NOTE | 2019-01-03 10:56 | Operative Report ---
Post Operative Report Pre & Post Diagnosis Operation Date: 01/03/19 07:00 Pre-Op Diagnosis: Left Hip End-Stage Degenerative Joint Disease Post-Op Diagnosis: Left Hip End-Stage Degenerative Joint Disease Procedure Operation Date: 01/03/19 07:00 Actual Procedures p Left Total Hip Arthroplasty(Left) - Austin Ross MD Surgeon DIVYA Ross MD Assistant Passenger Locomotive Engineer thom Estimated Blood Loss 300 Findings Consistent with Post-Op Diagnosis Specimens see operative report Drains none Complications none Disposition Accompanied Patient To Recovery: Yes Disposition: Recovery Room Indications This 68-year-old white male presented to the office with complaints of intractable left hip pain. He had tried conservative care measures without improvement. He elected to proceed with surgical intervention after being educated about potential risks and outcomes. Patient previously had a right total hip arthroplasty done several years ago. He elected to proceed with the same on the left. Preoperative imaging was obtained. Description of Procedure Patient was administered a spinal anesthetic and then taken to the operating room where he was given sedation. He was prepped and draped in the usual sterile fashion. Please see Dr. Ross's operative report for specifics of the procedure. I was present for the entire case from initial patient pos itioning through final wound closure. Assistance was provided in tissue retraction, hemostasis, trial implant placement, final implant placement, and final wound closure. Patient was taken to the recovery room in satisfactory condition. I attest to the content of the Intraoperative Record and any orders documented therein. Any exceptions are noted below.
--- NOTE | 2019-01-03 11:00 | Orthopedic Progress Note ---
Date of Service January 03, 2019 Subjective Patient is doing well postop denies chest pain shortness breath fever chills nausea vomiting or headache. Physical Exam Physical Exam: Patient still has effects of his block. Has some slight femoral nerve function slight sciatic nerve function both lower extremities. Hip is located. Postop x-rays look excellent. Results & Data Vital Signs (Past 12 Hours) Vital Signs Temp Pulse Pulse Pulse Resp BP BP 01/03/19 10:50 36.5 C 60 20 104/65 01/03/19 10:06 36.4 C L 57 L 20 106/64 01/03/19 09:45 36.3 C L 64 16 102/62 01/03/19 09:30 36.2 C L 59 L 19 103/49 L 01/03/19 09:20 69 20 112/50 L 01/03/19 09:10 62 15 91/44 L 01/03/19 09:00 64 16 110/54 L 01/03/19 08:50 64 15 107/56 L 01/03/19 08:40 69 16 111/48 L 01/03/19 08:33 36.3 C L 70 15 108/59 L 01/03/19 05:33 37 C 60 20 149/72 H Pulse Ox 01/03/19 10:50 99 01/03/19 10:06 100 01/03/19 09:45 98 01/03/19 09:30 100 01/03/19 09:20 100 01/03/19 09:10 100 01/03/19 09:00 100 01/03/19 08:50 100 01/03/19 08:40 100 01/03/19 08:33 100 01/03/19 05:33 94
--- NOTE | 2019-01-03 11:58 | Anesthesiology Progress Note ---
Date of Service January 03, 2019 Anesthesia Post Procedure Vital Signs Vital Signs: Temp Pulse Pulse Pulse Resp BP BP 01/03/19 10:50 36.5 C 60 20 104/65 01/03/19 10:06 36.4 C L 57 L 20 106/64 01/03/19 09:45 36.3 C L 64 16 102/62 01/03/19 09:30 36.2 C L 59 L 19 103/49 L 01/03/19 09:20 69 20 112/50 L 01/03/19 09:10 62 15 91/44 L 01/03/19 09:00 64 16 110/54 L 01/03/19 08:50 64 15 107/56 L 01/03/19 08:40 69 16 111/48 L 01/03/19 08:33 36.3 C L 70 15 108/59 L 01/03/19 05:33 37 C 60 20 149/72 H Pulse Ox 01/03/19 10:50 99 01/03/19 10:06 100 01/03/19 09:45 98 01/03/19 09:30 100 01/03/19 09:20 100 01/03/19 09:10 100 01/03/19 09:00 100 01/03/19 08:50 100 01/03/19 08:40 100 01/03/19 08:33 100 01/03/19 05:33 94 Pain Intensity Left Hip: Pain Intensity: 2 Transfer of Care Handoff Completed per policy Notes Mental Status: alert / awake / arousable Patient Amnestic to Procedure: Yes Nausea / Vomiting: adequately controlled Pain: adequately controlled Airway Patency, RR, SpO2: stable & adequate BP & HR: stable & adequate Hydration State: stable & adequate Neuraxial Anesthesia: was administered and sensory block is resolving Anesthetic Complications: no major complications apparent
[2019-01-03] MEDS: MULTIVITAMIN TAB PO SCH (12:00)
[2019-01-03] MEDS: DOCUSATE SODIUM 100 MG CAP PO SCH ×2 (12:00→21:24)
[2019-01-03] MEDS: LOSARTAN POTASSIUM 50 MG TAB PO SCH (12:00)
[2019-01-03] MEDS: POTASSIUM CITRATE 10 MEQ TAB PO SCH ×2 (12:01→21:24)
[2019-01-03] MEDS: OXYCODONE HCL IR 5 MG TAB (IMMEDIATE RELEASE) PO PRN ×4 (12:03→21:23)
[2019-01-03] MEDS: ACETAMINOPHEN 500 MG TAB PO SCH ×2 (13:30→21:24)
[2019-01-03] MEDS ORDERED: OXYCODONE/ACETAMINOPHEN 5mg/325mg TAB PO PRN (13:38)
[2019-01-03] MEDS: ORTHO WARFARIN NOMOGRAM SCH (14:26)
[2019-01-03] MEDS: CEFAZOLIN 2000MG 2,000 MG/15 ML SYR IV SCH ×2 (14:28→21:29)
[2019-01-03] MEDS ORDERED: TRANEXAMIC ACID 1,000 MG in 0.9 % SODIUM CHLORIDE 100 ML IV SCH (15:00)
[2019-01-03] MEDS ORDERED: WARFARIN SOD 5 MG TAB PO ONE (16:00)
[2019-01-03] MEDS ORDERED: ALFUZOSIN HCL 10 MG TAB PO SCH (16:30)
[2019-01-03] MEDS: FERROUS GLUCONATE 324 MG TAB PO SCH (18:40)
[2019-01-03] MEDS ORDERED: ATORVASTATIN 10 MG TAB PO SCH (21:00)
[2019-01-03] MEDS: TRAZODONE HCL 50 MG TAB PO SCH ×2 (21:24→23:13)
[2019-01-03] MEDS: SENNA 8.6 MG TAB PO SCH ×2 (21:25→21:28)
[2019-01-04] MEDS: OXYCODONE HCL IR 5 MG TAB (IMMEDIATE RELEASE) PO PRN ×3 (00:29→14:24)
[2019-01-04 03:17] VITALS: O2SAT 92
[2019-01-04 06:13] LABS: Basophils # (auto) 0.01 K/uL (0-0.2); Basophils % (auto) 0.1 %; Eosinophils # (auto) 0.11 K/uL (0-0.5); Eosinophils % (auto) 1.3 %; Hematocrit (blood only) 29.3 % (42-52); Hemoglobin 9.8 g/dL (14.0-18.0); Immature Granulocytes # (auto) 0.03 K/uL (0.00-0.02); Immature Granulocytes % (auto) 0.3 %; Lymphocytes # (auto) 0.63 K/uL (1.2-3.4); Lymphocytes % (auto) 7.3 %; Mean Corpuscular Hgb Conc 33.4 g/dL (32-36); Mean Corpuscular Volume 95.4 fL (80-100); Mean Platelet Volume 8.6 fL (7.4-10.4); Monocytes # (auto) 0.69 K/uL (0.11-0.59); Neutrophils # (auto) 7.11 K/uL (1.4-6.5); Platelet Count 171 K/uL (130-400); RDW Coefficient of Variation 13.2 % (11.5-14.5); RDW Standard Deviation 45.5 fL (36.4-46.3); Red Blood Count 3.07 M/uL (4.7-6.1); White Blood Count 8.58 K/uL (4.8-10.8)
[2019-01-04 06:23] LABS: INR 1.2 (0.9-1.1); Prothrombin Time 11.9 Seconds (9.0-12.0)
[2019-01-04] MEDS ORDERED: LEVOTHYROXINE SODIUM 100 MCG TABLET PO SCH (06:30)
[2019-01-04] MEDS: ACETAMINOPHEN 500 MG TAB PO SCH ×2 (06:38→14:11)
[2019-01-04 06:50] LABS: Calcium 7.9 mg/dl (8.5-10.1); Creatinine Clr Calc Pharmacy 49.2 ml/min; Est GFR (African American) 62.5; Est GFR (Non-African American) 53.9; Potassium 4.3 mmol/L (3.5-5.1)
[2019-01-04 07:13] VITALS: PULSE 75; TEMP 98.4
[2019-01-04] MEDS ORDERED: SERTRALINE HCL 100 MG TABLET PO SCH (07:30)
--- NOTE | 2019-01-04 07:32 | Progress Note ---
DATE: 01/04/2019 SUBJECTIVE: Status post left total hip replacement. The patient is resting well. There are no major issues. Denies chest pain, shortness of breath, fever, chills, nausea, vomiting or headache. OBJECTIVE: Vital signs are stable. He is afebrile. Neurovascular check femoral sciatic nerve is normal. Hip is located. Wound is clean, dressing changed, scant drainage. Hematocrit stable at 29.3. INR is 1.2. ASSESSMENT: Overall, doing well status post left total hip replacement. PLAN: Possibly discharge to home today. Follow up in 2 weeks. Discharge on 4 mg Coumadin. Check INR on Tuesday.
--- NOTE | 2019-01-04 07:37 | Discharge Summary ---
CHIEF COMPLAINT: Left hip pain. HISTORY OF PRESENT ILLNESS: Admitted for elective left total hip replacement. Hospital course has been uneventful. He is ambulatory. He denies any chest pain, shortness of breath, fever, chills, nausea, vomiting, or headache. Postop x-rays look excellent. PAST MEDICAL HISTORY: Remarkable for hypertension, elevated cholesterol, COPD, depression, hypothyroidism, kidney stones, reflux, osteoarthritis, hiatal hernia, and BPH. PAST SURGICAL HISTORY: Previous surgeries include right total hip replacement, herniorrhaphy, tonsillectomy, sebaceous cyst removal, shave biopsies of the skin. ALLERGIES: TO CIPRO. PREADMISSION MEDICATIONS: Include alfuzosin p.r.n., amoxicillin for dental work, atorvastatin, multivitamins, biotin oral solution, Colace, Gaviscon, Levothroid, losartan potassium, melatonin, meloxicam, MiraLax p.r.n., Naprosyn, potassium, ranitidine, sertraline, trazodone, p.r.n. Tylenol, vitamin E moisturizer cream. He will be discharged on oxycodone IR and Coumadin. Coumadin, keep INR 1.8-2.2, discharge on 4 mg. Check INR on Tuesday. FAMILY HISTORY: Remarkable for parents being , otherwise noncontributory. SOCIAL HISTORY: Reveals he is . No tobacco or alcohol use. He is employed. REVIEW OF SYSTEMS: Noncontributory. ASSESSMENT: Overall, doing well, status post left total hip replacement. We will discharge to home today. Coumadin per nomogram today. Discharge on 4 mg. Check INR on Tuesday.
[2019-01-04] MEDS ORDERED: dexAMETHasone 10 MG in SYRINGE 0 ML IV SCH (08:00)
[2019-01-04] MEDS: MULTIVITAMIN TAB PO SCH (08:45)
[2019-01-04] MEDS: FERROUS GLUCONATE 324 MG TAB PO SCH (08:46)
[2019-01-04] MEDS: BuPROPion XL 150 MG TABCR PO SCH (08:46)
[2019-01-04] MEDS: LOSARTAN POTASSIUM 50 MG TAB PO SCH (08:46)
[2019-01-04] MEDS: POTASSIUM CITRATE 10 MEQ TAB PO SCH (08:46)
[2019-01-04] MEDS: DOCUSATE SODIUM 100 MG CAP PO SCH (08:46)
[2019-01-04] MEDS ORDERED: POLYETHYLENE (MIRALAX) 17 GM PACK PO SCH (09:00)
[2019-01-04] MEDS ORDERED: WARFARIN SOD 5 MG TAB PO STA (09:24)
[2019-01-04] MEDS: ORTHO WARFARIN NOMOGRAM SCH (11:54)
[2019-01-04 14:16] VITALS: BP 87/44
== END 2019-01-04 14:56 | disposition home health service (06) | DRG 470 ==
LOC: ASU 04:57 → 3E 09:44
DX: J44.9 Chronic obstructive pulmonary disease, unspecified; E03.9 Hypothyroidism, unspecified; M16.12 Unilateral primary osteoarthritis, left hip; I10 Essential (primary) hypertension; Z79.01 Long term (current) use of anticoagulants; F32.9 Major depressive disorder, single episode, unspecified; N40.0 Benign prostatic hyperplasia without lower urinary tract symptoms; Z96.641 Presence of right artificial hip joint